=== PATIENT | female | born 1940 | race Two or more races ===

== ENCOUNTER 2025-03-01 10:54 | Inpatient (IN) | payer MEDICAID, OTHER ==
[~2025-03-01] VITALS: Ht 152.4 cm; Wt 77.4 kg
--- NOTE | 2025-03-01 12:19 | ED.PDOC ---
GI ASSESSMENT HPI Comments HPI: Julia 84 y.o F BIB son, presents to the ED for a chief complaint of epigastric pain radiating up to her chest and neck and is associated with nausea x 1 weeks. Patient reports pain is intermittent with no alleviating factors. Son reports patient just arrived from [place] today which is where she was residing. No vo miting, diarrhea, fever, or chills reported. Initial Vitals BP: 126/70 HR:93 RR:22 O2 Sat: 88% RA placed on O2 upon ED arrival. no longer SOB with O2 Past Medical history: HTN Past Surgical history: pacemaker Medications: spirolactone Social History: Denies smoking, ETOH, and drug use. Allergies: NKDA `` Chief Complaint: Shortness of Breath Time Seen by MD: 12:06 Reviewed Notes: Allergies Allergies: Coded Allergies: NO KNOWN ALLERGIES (Unverified , 03/01/25) Information Source: Patient, Relative (son ) Mode of Arrival: Wheelchair Past Medical History PAST MEDICAL HISTORY: HTN Surgical History: Pacemaker ORTHOPEDIC DENTIST History: No Pertinent ORTHOPEDIC DENTIST History Family History Family History: Reviewed,noncontributory to illness, No family hx of Cancer, No family hx of DM, No family hx of Heart dena, No family hx of HTN, No family hx ofKidney dena, No family hx of Liver dena, No family hx of Lung dena, No family hx of Stroke Social History Smoker: Non-Smoker Alcohol: Denies ETOH Use Drugs: Denies Drug Use Lives In: Home Was a procedure done? Was a procedure done?: No GI differential Dx Differential Diagnosis: Angina/[place], Gastritis/PUD, Gastroenteritis, Electrolyte Imbalance, Viral X-Ray, Labs, Meds, VS Vital Signs Date Time Temp Pulse Resp B/P (MAP) Pulse Ox O2 Delivery O2 Flow Rate FiO2 03/01/25 18:36 98.6 85 17 115/60 (78) 95 98.6 03/01/25 16:30 98.5 85 19 125/93 (104) 99 98.5 03/01/25 14:40 98.6 82 18 133/74 (93) 98 98.6 03/01/25 14:40 82 18 98 Room Air 03/01/25 13:32 86 03/01/25 11:01 87 03/01/25 11:00 98.3 93 22 126/70 88 98.3 Lab Test 03/01/25 17:49 03/01/25 14:24 03/01/25 12:35 03/01/25 12:12 Range/Units Troponin I High Sensitivity 106 *H 99 *H 94 *H </=34 ng/L White Blood Count 6.5 4.4-10.8 10^3/uL Red Blood Count 4.00 4.0-5.20 10^6/uL Hemoglobin 11.0 L 12.2-16.2 g/dL Hematocrit 34.0 L 36.0-46.0 % Mean Corpuscular Volume 84.9 80.0-100.0 fL Mean Corpuscular Hemoglobin 27.4 L 28.0-32.0 pg Mean Corpuscular Hemoglobin Concent 32.2 32.0-36.0 g/dL Red Cell Distribution Width 14.8 H 11.8-14.3 % Platelet Count 294 140-450 10^3/uL Mean Platelet Volume 7.4 6.9-10.8 fL Neutrophils (%) (Auto) 67.7 37.0-80.0 % Lymphocytes (%) (Auto) 22.3 10.0-50.0 % Monocytes (%) (Auto) 8.2 0.0-12.0 % Eosinophils (%) (Auto) 1.2 0.0-7.0 % Basophils (%) (Auto) 0.6 0.0-2.0 % Neutrophils # (Auto) 4.4 1.6-8.6 10 ^3/uL Lymphocytes # (Auto) 1.4 0.4-5.4 10 ^3/uL Monocytes # (Auto) 0.5 0-1.3 10 ^3/uL Eosinophils # (Auto) 0.1 0-0.8 10 ^3/uL Basophils # (Auto) 0 0-0.2 10 ^3/uL Nucleated Red Blood Cells 0.1 % Sodium Level 142 136-145 mmol/L Potassium Level 4.8 3.5-5.1 mmol/L Chloride Level 104 98-107 mmol/L Carbon Dioxide Level 28 20-31 mmol/L Anion Gap 10 5-15 Blood Urea Nitrogen 18 9-23 mg/dL Creatinine 1.42 H 0.550-1.02 mg/dL Glomerular Filtration Rate Calc 36 >90 mL/min BUN/Creatinine Ratio 12.7 10.0-20.0 Serum Glucose 108 H 74-106 mg/dL Lactic Acid Level 1.8 0.4-2.0 mmol/L Calcium Level 8.6 L 8.7-10.4 mg/dL Total Bilirubin 0.6 0.2-1.0 mg/dL Aspartate Amino Transferase (AST) 35 13-40 U/L Alanine Aminotransferase (ALT) 27 7-40 U/L Alkaline Phosphatase 123 H 46-116 U/L B-Type Natriuretic Peptide > 5000.00 0-100 pg/mL Total Protein 7.1 5.7-8.2 g/dL Albumin 4.2 3.2-4.8 g/dL Lipase 28 12-53 U/L Urine Color Yellow Yellow Urine Clarity Clear Clear Urine pH 6.0 5.0-9.0 Urine Specific [place] 1.029 1.001-1.035 Urine Protein 1+ H Negative Urine Ketones Trace Negative Urine Blood Trace H Negative /uL Urine Nitrite Negative Negative Urine Bilirubin 1+ H Negative Urine Urobilinogen 3 H Negative mg/dL Urine Leukocyte Esterase 1+ Negative /uL Urine RBC 5 0 - 4 /hpf Urine Microscopic WBC 9 H 0-5 /HPF Urine Squamous Epithelial Cells Few <5 /hpf Urine Bacteria Few H None Seen /hpf Urine Hyaline Casts Few 0 - 2 /lpf Urine Glucose Normal Normal mg/dL Current Medications Medications (Trade) Dose Ordered Sig/Nanda Route Start Time Stop Time Status Last Admin Aspirin (Ecotrin Enteric Coated Tablet) 325 mg ONCE ONCE PO 03/01/25 13:30 03/01/25 14:02 DC 03/01/25 14:48 Ceftriaxone Sodium 50 ml @ 100 mls/hr ONCE ONCE IV 03/01/25 14:00 03/01/25 14:29 DC 03/01/25 15:17 [place] [id number] Ph: [phone] DIAGNOSTIC IMAGING Diagnostic Imaging Report : [id number] Signed PATIENT: OLGA LIDIA CAMPBELLACCT: [id number] UNIT: [id number] : 1940 LOC: ER ROOM / BED: / AGE / SEX: 84 / F ADM STATUS: REG ER SERVICE 1214 ORDERING PHYSICIAN: FLORI ECHEVARRIA DO PROCEDURE(s): CXRP - CHEST PORTABLE REASON: epig/chest pain ORDER NUMBER(s): [id number], ACCESSION NUMBER(s): [id number] CHEST RADIOGRAPH INDICATION: epig/chest pain TECHNIQUE: Single frontal view of the chest was obtained COMPARISON: None FINDINGS: Lines and Tubes: None Lungs: No focal consolidation. Mild interstitial prominence. Indistinctness of the left hemidiaphragm. No pneumothorax. Cardiomediastinal contours: Moderate cardiomegaly with moderate atherosclerotic calcification and uncoiling of the aorta. Left-sided approach dual lead pacemak er terminating within right atrium and right ventricle. Bones: No acute osseous abnormality. IMPRESSION: Cardiomegaly with mild pulmonary vascular congestion. Indistinctness of the left hemidiaphragm which may be from overlying cardiac silhouette. Underlying trace effusion/atelectasis can not be completely excluded. Time of 1ST Reevaluation: 12:15 Reevaluation 1ST: Unchanged Patient Education/Counseling: Diagnosis, Treatment Family Education/Counseling: Diagnosis, Treatment Departure 1 Departure Time of Disposition: 13:27 Impression: Primary Impression: Chest pain Additional Impressions: Elevated troponin UTI (urinary tract infection) Hypoxemic encephalopathy Epigastric pain Disposition: 09 ADMITTED INPATIENT Admit to: Tele Condition: Guarded Discharged With: Self Critical Care Note Critical Care Time?: No I personally scribed for FLORI ECHEVARRIA DO ([email or web address]) on 03/01/25 at 12:19. Electronically submitted by Serena Vanegas ([facility]). I personally scribed for FLORI ECHEVARRIA DO ([email or web address]) on 03/01/25 at 13:18. Electronically submitted by Steff Arndt ([facility]). FLORI ECHEVARRIA DO Mar 01, 2025 12:19
[2025-03-01 12:52] LABS: Hematocrit 34.0 % (36.0-46.0); Hemoglobin 11.0 g/dL (12.2-16.2); Mean Corpuscular Hemoglobin 27.4 pg (28.0-32.0); Mean Corpuscular Volume 84.9 fL (80.0-100.0); Nucleated Red Blood Cells % 0.1 %
[2025-03-01 13:09] LABS: Alanine Aminotransferase 27 U/L (7-40); Albumin 4.2 g/dL (3.2-4.8); Anion Gap 10 (5-15); BUN/Creatinine Ratio 12.7 (10.0-20.0); Bilirubin, Total 0.6 mg/dL (0.2-1.0); Blood Urea Nitrogen 18 mg/dL (9-23); Carbon Dioxide 28 mmol/L (20-31); Chloride 104 mmol/L (98-107); Potassium 4.8 mmol/L (3.5-5.1); Sodium 142 mmol/L (136-145); Total Protein 7.1 g/dL (5.7-8.2)
[2025-03-01 13:10] LABS: Alkaline Phosphatase 123 U/L (46-116); Calcium 8.6 mg/dL (8.7-10.4); Glucose 108 mg/dL (74-106)
--- NOTE | 2025-03-01 13:12 | DVH ---
CHEST RADIOGRAPH INDICATION: epig/chest pain TECHNIQUE: Single frontal view of the chest was obtained COMPARISON: None FINDINGS: Lines and Tubes: None Lungs: No focal consolidation. Mild interstitial prominence. Indistinctness of the left hemidiaphragm. No pneumothorax. Cardiomediastinal contours: Moderate cardiomegaly with moderate atherosclerotic calcification and uncoiling of the aorta. Left-sided approach dual lead pacemaker terminating within right atrium and right ventricle. Bones: No acute osseous abnormality. IMPRESSION: Cardiomegaly with mild pulmonary vascular congestion. Indistinctness of the left hemidiaphragm which may be from overlying cardiac silhouette. Underlying trace effusion/atelectasis can not be completely excluded.
[2025-03-01 13:13] LABS: Lipase 28 U/L (12-53)
[2025-03-01 13:17] LABS: Urine Protein, UAD 1+ (Negative)
[2025-03-01] MEDS: ASPirin-EC 325mg tab PO ONE (14:48)
[2025-03-01] MEDS ORDERED: ACETAMINOPHEN 325 MG TAB PO PRN (20:30)
[2025-03-01] MEDS: LIDOCAINE VISCOUS 2% 15ML UD PO ONE (20:41)
[2025-03-01] MEDS: PANTOPRAZOLE 40 MG TAB PO ONE (20:41)
[2025-03-01] MEDS: FUROSEMIDE 40 MG/4 ML VIAL IV ONE (20:41)
[2025-03-01] MEDS: SUCRALFATE 1 GM TAB PO ONE (20:43)
--- NOTE | 2025-03-01 21:02 | DVHHP2 ---
History of Present Illness Reason for Visit: Congestive heart failure exacerbation, unspecified History of Present Illness The patient is a 84-year-old female with past medical history of hypertension who presented to [facility] ED with complaint of epigastric abdominal pain radiating up to her neck and chest, associated with nausea, shortness of breaths, for the past 1 week. Son reports that patient just arrived from [place] today which is where she was residing. Patient was seen and evaluated in the ED, laboratory data shows WBC 6.5, hemoglobin 11.0, hematocrit 34.0, platelets 294, sodium 142, potassium 4.8, BUN 18, creatinine 1.42, GFR 36, glucose 108, calcium 8.6, lactic acid 1.8, alkaline phos 123, BNP > 5000, lipase 28, troponin 94, blood pressure 115/60, heart rate 85, temperature 98.6 F, O2 saturation 95% on oxygen. Urinalysis positive for urinary tract infection. Chest x-ray revealing cardiomegaly with mild pulmonary vascular congestion, underlying trace effusion/atelectasis can not be completely excluded. Patient was started on IV Lasix, please see medication orders section in the computer. On my assessment, patient denied chest pain, no headache, dizziness, diaphoresis, currently on oxygen, no diarrhea, nausea, vomiting, fever, no chills. Patient was admitted for further evaluation and medical management. Past Medical History HTN Past Surgical History Pacemaker Family History Reviewed, noncontributory to the management of this case. Past Social History The patient lives at home, denies smoking, alcohol or illicit drugs abuse. Review of Systems Constitutional: Yes: Weakness; No: Fever, Chills, Sweats, Malaise, Other Eyes: No: Pain, Vision change, Conjunctivae inflammation, Eyelid inflammation, Other, Redness ENT: No: Ear pain, Ear discharge, Nose pain, Nose discharge, Nose congestion, Mouth pain, Mouth swelling, Throat pain, Throat swelling, Other Respiratory: Shortness of breath; No: Cough, Dry, SOB with excertion, Wheezing, Hemoptysis, Pleuritic Pain, Sputum, Wheezing, Other Cardiovascular: No: Chest Pain, Palpitations, Orthopnea, Paroxysmal Noc. Dyspnea, Edema, Lt Headedness, Other Gastrointestinal: Abdominal Pain; No: Nausea, Vomiting, Diarrhea, Constipation, Melena, Hematochezia, Other Genitourinary: No Dysuria, No Frequency, No Incontinence, No Hematuria, No Retention, No Other Musculoskeletal: No: other, neck pain, shoulder pain, arm pain, back pain, hand pain, leg pain, foot pain Skin: No: Rash, Lesions, Jaundice, Bruising, Other Neurological: No: Weakness, Numbness, Incoordination, Change in speech, Confusion, Seizures, Other Allergies: Coded Allergies: NO KNOWN ALLERGIES (Unverified , 03/01/25) Medications Current Medications Medications Dose Ordered Sig/Nanda Route Start Time Stop Time Status Last Admin Dose Admin Furosemide 40 mg DAILY IV 03/02/25 10:00 Carvedilol 3.125 mg Q12HR PO 03/01/25 22:00 Aspirin 81 mg DAILY PO 03/02/25 10:00 Ceftriaxone Sodium 50 ml @ 100 mls/hr DAILY@09 IV 03/02/25 09:00 Acetaminophen/ Hydrocodone Bitart 1 tab Q4HP PRN PO 03/01/25 20:30 Ondansetron HCl 4 mg Q4HP PRN IV 03/01/25 20:30 Docusate Sodium 100 mg BIDPRN PRN PO 03/01/25 20:30 Acetaminophen 650 mg Q6HP PRN PO 03/01/25 20:30 Exam Vital Signs Vital Signs Date Time Temp Pulse Resp B/P (MAP) Pulse Ox O2 Delivery O2 Flow Rate FiO2 03/01/25 20:41 127/81 03/01/25 18:36 98.6 85 17 95 98.6 03/01/25 14:40 Room Air General Appearance: Alert, Oriented X3, Cooperative, No acute distress HEENT: Atraumatic, PERRLA, EOMI, Mucous membr. moist/pink Respiratory: Normal air movement Cardiovascular: Regular rate, Normal S1, Normal S2, No murmurs Abdominal: Normal bowel sounds, Soft, No tenderness, No hepatospenomegaly, No masses Extremities: No clubbing, No cyanosis, No edema, Normal pulses, No tenderness/swelling Skin: No rashes, No significant lesion Neuro: Normal speech, Normal tone, Sensation intact, Cranial nerves 3-12 NL, Reflexes 2+, Other (Generalized weakness) Psych/Mental Status: Mental status NL, Mood NL Labs/Xrays Labs Test 03/01/25 17:49 03/01/25 12:35 03/01/25 12:12 Range/Units Troponin I High Sensitivity 106 *H </=34 ng/L Lipase 40 12-53 U/L White Blood Count 6.5 4.4-10.8 10^3/uL Red Blood Count 4.00 4.0-5.20 10^6/uL Hemoglobin 11.0 L 12.2-16.2 g/dL Hematocrit 34.0 L 36.0-46.0 % Mean Corpuscular Volume 84.9 80.0-100.0 fL Mean Corpuscular Hemoglobin 27.4 L 28.0-32.0 pg Mean Corpuscular Hemoglobin Concent 32.2 32.0-36.0 g/dL Red Cell Distribution Width 14.8 H 11.8-14.3 % Platelet Count 294 140-450 10^3/uL Mean Platelet Volume 7.4 6.9-10.8 fL Neutrophils (%) (Auto) 67.7 37.0-80.0 % Lymphocytes (%) (Auto) 22.3 10.0-50.0 % Monocytes (%) (Auto) 8.2 0.0-12.0 % Eosinophils (%) (Auto) 1.2 0.0-7.0 % Basophils (%) (Auto) 0.6 0.0-2.0 % Neutrophils # (Auto) 4.4 1.6-8.6 10 ^3/uL Lymphocytes # (Auto) 1.4 0.4-5.4 10 ^3/uL Monocytes # (Auto) 0.5 0-1.3 10 ^3/uL Eosinophils # (Auto) 0.1 0-0.8 10 ^3/uL Basophils # (Auto) 0 0-0.2 10 ^3/uL Nucleated Red Blood Cells 0.1 % Sodium Level 142 136-145 mmol/L Potassium Level 4.8 3.5-5.1 mmol/L Chloride Level 104 98-107 mmol/L Carbon Dioxide Level 28 20-31 mmol/L Anion Gap 10 5-15 Blood Urea Nitrogen 18 9-23 mg/dL Creatinine 1.42 H 0.550-1.02 mg/dL Glomerular Filtration Rate Calc 36 >90 mL/min BUN/Creatinine Ratio 12.7 10.0-20.0 Serum Glucose 108 H 74-106 mg/dL Lactic Acid Level 1.8 0.4-2.0 mmol/L Calcium Level 8.6 L 8.7-10.4 mg/dL Total Bilirubin 0.6 0.2-1.0 mg/dL Aspartate Amino Transferase (AST) 35 13-40 U/L Alanine Aminotransferase (ALT) 27 7-40 U/L Alkaline Phosphatase 123 H 46-116 U/L B-Type Natriuretic Peptide > 5000.00 0-100 pg/mL Total Protein 7.1 5.7-8.2 g/dL Albumin 4.2 3.2-4.8 g/dL Urine Color Yellow Yellow Urine Clarity Clear Clear Urine pH 6.0 5.0-9.0 Urine Specific [place] 1.029 1.001-1.035 Urine Protein 1+ H Negative Urine Ketones Trace Negative Urine Blood Trace H Negative /uL Urine Nitrite Negative Negative Urine Bilirubin 1+ H Negative Urine Urobilinogen 3 H Negative mg/dL Urine Leukocyte Esterase 1+ Negative /uL Urine RBC 5 0 - 4 /hpf Urine Microscopic WBC 9 H 0-5 /HPF Urine Squamous Epithelial Cells Few <5 /hpf Urine Bacteria Few H None Seen /hpf Urine Hyaline Casts Few 0 - 2 /lpf Urine Glucose Normal Normal mg/dL PATIENT: MARINA CAMPBELLANDAACCT: [id number] UNIT: [id number] : 1940 LOC: ER ROOM / BED: / AGE / SEX: 84 / F ADM STATUS: REG ER SERVICE 1214 ORDERING PHYSICIAN: FLORI ECHEVARRIA DO PROCEDURE(s): CXRP - CHEST PORTABLE REASON: epig/chest pain ORDER NUMBER(s): [id number], ACCESSION NUMBER(s): [id number] CHEST RADIOGRAPH INDICATION: epig/chest pain TECHNIQUE: Single frontal view of the chest was obtained COMPARISON: None FINDINGS: Lines and Tubes: None Lungs: No focal consolidation. Mild interstitial prominence. Indistinctness of the left hemidiaphragm. No pneumothorax. Cardiomediastinal contours: Moderate cardiomegaly with moderate atherosclerotic calcification and uncoiling of the aorta. Left-sided approach dual lead pacemaker terminating within right atrium and right ventricle. Bones: No acute osseous abnormality. IMPRESSION: Cardiomegaly with mild pulmonary vascular congestion. Indistinctness of the left hemidiaphragm which may be from overlying cardiac silhouette. Underlying trace effusion/atelectasis can not be completely excluded. SEPSIS Sepsis Screen Date sepsis recognized/suspect: Mar 01, 2025 Time Sepsis recognized/suspect: 1624 Recent Procedure: No On Antibiotic Therapy: No Respiratory Rate >20: No Heart Rate >90: Yes Temp<36 C (96.8 F) or >38.3 C: No SBP <90 or MAP <65 mmHG: No New Acute Mental Status Change: No Is the patient on CPAP, BIPAP,: No Physician Orders * Cardiology Consult (03/01/25 20:20) Furosemide Injection (Lasix Injection) (03/02/25 10:00) Carvedilol Tablet (Coreg Tablet) (03/01/25 22:00) Aspirin Chewable Tablet (03/02/25 10:00) Ceftriaxone 1gm/50ml (Rocephin) (03/02/25 09:00) Urine Bacterial Culture (03/01/25 20:20) Allergies (03/01/25 20:20) Code Status (03/01/25 20:20) Oxygen Per Hour (03/01/25 20:20) Hydrocodone-Acet 5/325mg Tab ([place] 5/32 (03/01/25 20:30) Ondansetron Hcl (Zofran) (03/01/25 20:30) Docusate Sodium Capsule (Colace Capsule) (03/01/25 20:30) Fall Risk Precautions In Place QSHIFT (03/01/25 20:20) Complete Blood Count (03/02/25 04:00) Comprehensive Metabolic Panel (03/02/25 04:00) Cardiac Diet-2gna,Lofat,Lochol (03/02/25 Breakfast) Echo 2d Mode Cardiac Dop (03/01/25 20:20) Condition: Serious (03/01/25 20:20) Acetaminophen Tablet (Tylenol Tablet) (03/01/25 20:30) Maintain Bed Rest (03/01/25 20:20) Sequential Compression Device (03/01/25 ) Vital Signs Date Time Temp Pulse Resp B/P (MAP) Pulse Ox O2 Delivery O2 Flow Rate FiO2 03/01/25 20:41 127/81 03/01/25 18:36 98.6 85 17 115/60 (78) 95 98.6 03/01/25 16:30 98.5 85 19 125/93 (104) 99 98.5 03/01/25 14:40 98.6 82 18 133/74 (93) 98 98.6 03/01/25 14:40 82 18 98 Room Air 03/01/25 13:32 86 Laboratory Tests Test 03/01/25 12:35 Lactic Acid Level 1.8 mmol/L (0.4-2.0) White Blood Count 6.5 10^3/uL (4.4-10.8) Medications Medications Dose Ordered Sig/Nanda Route Start Time Stop Time Status Last Admin Dose Admin Aspirin 325 mg ONCE ONCE PO 03/01/25 13:30 03/01/25 14:02 DC 03/01/25 14:48 325 MG Ceftriaxone Sodium 50 ml @ 100 mls/hr ONCE ONCE IV 03/01/25 14:00 03/01/25 14:29 DC 03/01/25 15:17 100 MLS/HR Furosemide 40 mg ONCE ONCE IV 03/01/25 13:15 03/01/25 14:02 DC 03/01/25 20:41 40 MG Lidocaine HCl 10 ml ONCE ONCE PO 03/01/25 20:00 03/01/25 20:30 DC 03/01/25 20:41 10 ML Pantoprazole Sodium 40 mg ONCE ONCE PO 03/01/25 20:00 03/01/25 20:30 DC 03/01/25 20:41 40 MG Sucralfate 1 gm ONCE ONCE PO 03/01/25 20:00 03/01/25 20:30 DC 03/01/25 20:43 1 GM Assessment/Plan Assessment/Plan Acute exacerbation of congestive heart failure Chest pain Elevated troponin Epigastric pain UTI urinary tract infection Generalized weakness Plan 1. Admit to telemetry unit 2. Breathing treatment 3. Pain control management 4. IV antibiotic management 5. Management of fluids and electrolytes 6. Consultation for Cardiology/hospitalist 7. Diagnostic test chest x-ray 8. DVT prophylaxis-on aspirin 9. Repeat labs CBC, CMP in a.m. 10. Home medication reviewed and reconciled 11. Continue with current medical management 12. Treatment plan discussed with patient and RN. Patient verbalized understanding. Plan discussed with: Patient, Son (At bedside), Other (RN) My Orders Orders - PETRA JHA DNP Procedure Category Date Status Time * Cardiology Consult CONS 03/01/25 Transmitted 20:20 Furosemide Injection PHA 03/02/25 In Process (Lasix Injection) 10:00 Carvedilol Tablet PHA 03/01/25 In Process (Coreg Tablet) 22:00 Aspirin Chewable PHA 03/02/25 In Process Tablet 10:00 Ceftriaxone 1gm/50ml PHA 03/02/25 In Process (Rocephin) 09:00 Urine Bacterial DIANNE 03/01/25 In Process Culture 20:20 Allergies MABLE 03/01/25 In Process 20:20 Code Status CODE 03/01/25 Transmitted 20:20 Oxygen Per Hour RT 03/01/25 Transmitted 20:20 Hydrocodone-Acet PHA 03/01/25 In Process 5/325mg Tab ([place] 20:30 Ondansetron Hcl PHA 03/01/25 In Process (Zofran) 20:30 Docusate Sodium PHA 03/01/25 In Process Capsule (Colace 20:30 Fall Risk Precautions MABLE 03/01/[address] 20:20 Complete Blood Count LAB 03/02/25 Verified 04:00 Comprehensive LAB 03/02/25 Verified Metabolic Panel 04:00 Cardiac DIET 03/02/25 Transmitted Diet-2gna,Lofat,Lochol Breakfast Echo 2d Mode Cardiac US 03/01/25 Logged DOP 20:20 Condition: Serious MABLE 03/01/25 In Process 20:20 Acetaminophen Tablet PHA 03/01/25 In Process (Tylenol Tablet) 20:30 Maintain Bed Rest MABLE 03/01/25 In Process 20:20 Sequential MABLE 03/01/25 In Process Compression Device Problem List: (1) Acute exacerbation of congestive heart failure (2) Chest pain (3) Elevated troponin (4) Epigastric pain (5) UTI (urinary tract infection) (6) Generalized weakness Date of Service: Mar 01, 2025 Billing Provider: PETRA JHA DNP Common Visit Codes: [id number] INP/OBS CARE (HIGH) PETRA JHA DNP Mar 01, 2025 21:02
[2025-03-01] MEDS ORDERED: MORPHINE SULFATE INJ 2 MG/ml SYRG IV PRN (21:15)
[2025-03-01] MEDS: HYDROcodone-ACET 5/325MG TAB PO PRN (21:16)
[2025-03-02] VITALS (8 sets, daily range): BP systolic 97–126; BP diastolic 53–83; PULSE 68–86; RESP 18–20; TEMP 97.1–98.8; O2SAT 93–100
[2025-03-02] MEDS: NITROGLYCERIN 0.4 MG SL TAB SL PRN (00:13)
[2025-03-02] MEDS: ONDANSETRON HCL 4 MG/2 ML VIAL IV PRN (01:17)
[2025-03-02] MEDS: CARVEDILOL 3.125 MG TAB PO SCH (01:43)
[2025-03-02 06:26] LABS: Hematocrit 33.4 % (36.0-46.0); Hemoglobin 10.6 g/dL (12.2-16.2); Mean Corpuscular Hemoglobin 27.2 pg (28.0-32.0); Mean Corpuscular Volume 85.4 fL (80.0-100.0); Nucleated Red Blood Cells % 0.0 %
[2025-03-02 06:46] LABS: Alanine Aminotransferase 22 U/L (7-40); Albumin 4.0 g/dL (3.2-4.8); Alkaline Phosphatase 113 U/L (46-116); Anion Gap 9 (5-15); BUN/Creatinine Ratio 13.7 (10.0-20.0); Bilirubin, Total 0.4 mg/dL (0.2-1.0); Blood Urea Nitrogen 18 mg/dL (9-23); Carbon Dioxide 29 mmol/L (20-31); Chloride 102 mmol/L (98-107); Potassium 4.6 mmol/L (3.5-5.1); Sodium 140 mmol/L (136-145); Total Protein 6.9 g/dL (5.7-8.2)
[2025-03-02 06:48] LABS: Calcium 8.4 mg/dL (8.7-10.4); Glucose 111 mg/dL (74-106)
[2025-03-02] MEDS ORDERED: ASPI-543 PO (09:34)
[2025-03-02] MEDS ORDERED: POM PO (09:34)
[2025-03-02] MEDS ORDERED: SACU1TAB7 PO (09:34)
[2025-03-02] MEDS ORDERED: ESOM1CAP37 PO (09:34)
[2025-03-02] MEDS ORDERED: SPIR25TA8 PO (09:34)
[2025-03-02] MEDS: FUROSEMIDE 40 MG/4 ML VIAL IV SCH ×2 (09:53→17:31)
--- NOTE | 2025-03-02 12:21 | ECG ---
[facility] Test Date: 2025-03-02 Test Time: 00:05:24 Pat Name: OLGA LIDIA CAMPBELL Department: Room: [address] [place] [address] Gender: F Fac Engineer: LAYNE : 1940 Requested By: PETRA JHA Order Number: [id number] Reading MD: Navin Stewart Measurements Intervals [place] Rate: 82 P: 58 VT: 217 QRS: 267 QRSD: 168 T: 77 QT: 456 QTc: 533 Interpretive Statements Atrial-sensed ventricular-paced rhythm No further analysis attempted due to paced rhythm Electronically Signed On 03-07-2025 8:16:33 PST by Navin Stewart Please click the below link to view image of tracing.
--- NOTE | 2025-03-02 13:03 | DVHINCON2 ---
Date Seen: Mar 02, 2025 Referring Physician CROW Arias Reason for Consultation CHF History of Present Illness This is a pleasant French-speaking 84-year-old female patient who presents to the emergency room with multiple chief complaints. The patient complains of epigastric pain radiating up to her chest with associated headache and shortness of breath. When patient was asked about the chest pain, she states that it is precipitated by epigastric pain which feels as though it is a burning sensation that travels from the epigastric region directly up towards her substernal chest and all the way to her throat. Associated symptoms include shortness of breath, nausea and headache. Cardiology has been consulted at this time for CHF exacerbation. The patient denies any cardiac symptoms at time of assessment including chest pain, palpitations, shortness of breath, etc.. Initial twelve lead electrocardiogram reveals an AV paced rhythm. Initial troponin level of 94ng/L with flat trend thereafter. Initial BNP significant as it is >5000pg/mL. At the time of assessment, the patient denies any cardiac symptoms. The patient is a very poor historian. The patient's son who was at bedside is equally a poor historian. Patient is originally from [place] and states that she still goes out there for medications. Per patient and her son, significant past medical history includes permanent pacemaker implantation in November 2022 (Medtronic), hypertension, GERD, and morbid obesity. The patient and her son both deny that the patient has a ever been diagnosed with congestive heart failure. Patient medication list noted to have heart failure medications. She denies any previous cardiac workup and reports that the only cardiac intervention she has had is a permanent pacemaker. 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 Rodríguez. Past Medical History Past medical history reviewed. No other significant than mentioned above. Past Surgical History Permanent pacemaker implantation in November 2022 Family History Family history reviewed. Social History Denies the use of tobacco, alcohol or illicit drugs. Allergies: Coded Allergies: NO KNOWN ALLERGIES (Unverified , 03/01/25) Home Meds Reported Medications Aspirin (Aspir-Low) 81 Mg Tab, 81 MG PO DAILY for 30 Days, MG 03/02/25 Spironolactone (Spironolactone) 25 Mg Tab, 1 TAB PO DAILY, #90 TAB 1 Refill 03/02/25 Patients Own Medication (PATIENTS OWN MEDICATION) ., 20 PO DAILY PTS OWN MED-OBTAIN FROM PT AND SEND TO RX DRUG:PROPINOX FREQ:DAILY RX# EXP: DATE DISP: TECH: [facility]: 03/02/25 Sacubitril-Valsartan (Entresto 49-51 mg) 1 Tab Tab, 1 TAB PO DAILY, TAB 03/02/25 Esomeprazole Magnesium (Esomeprazole Magnesium) 20 Mg Cap, 20 MG PO BID, CAP 03/02/25 Home Meds Home medications reviewed. Current Medications Current Medications Medications (Trade) Dose Ordered Sig/Nanda Route PRN Reason Start Time Stop Time Status Last Admin Furosemide (Lasix Injection) 40 mg DAILY IV 03/02/25 10:00 03/02/25 09:53 Carvedilol (Coreg Tablet) 3.125 mg Q12HR PO 03/01/25 22:00 03/02/25 09:52 Aspirin 81 mg DAILY PO 03/02/25 10:00 03/02/25 09:53 Ceftriaxone Sodium 50 ml @ 100 mls/hr DAILY@09 IV 03/02/25 09:00 03/02/25 09:52 Acetaminophen/ Hydrocodone Bitart ([place] 5/325MG Tab) 1 tab Q4HP PRN PO MODERATE PAIN (4-6 PAIN SCALE) 03/01/25 20:30 03/01/25 21:16 Ondansetron HCl (Zofran) 4 mg Q4HP PRN IV NAUSEA / VOMITING 03/01/25 20:30 03/02/25 01:17 Docusate Sodium (Colace Capsule) 100 mg BIDPRN PRN PO FOR CONSTIPATION 03/01/25 20:30 Acetaminophen (Tylenol Tablet) 650 mg Q6HP PRN PO PAIN SCALE 1-3 OR TEMP>100.4 03/01/25 20:30 Nitroglycerin (Ntrostat Sublingual) 0.4 mg Q5MINP PRN SL FOR CHEST PAIN 03/01/25 21:15 03/02/25 00:13 Morphine Sulfate 2 mg Q30M PRN IV FOR CHEST PAIN 03/01/25 21:15 Review of Systems Constitutional: No symptom reported Ears, Nose, & Throat: No symptom reported Eyes: No symptom reported Neurological: Headache Pulmonary/Respiratory: Shortness of breath Cardiovascular: Chest pain Gastrointestinal: Epigastric pain, nausea Genitourinary: No symptom reported Musculoskeletal: No symptom reported Skin: No symptom reported Psychiatric: No symptom reported Endocrine: No symptom reported Hematologic/Lymphatic: No symptom reported Vital Signs Vital Signs Date Time Temp Pulse Resp B/P (MAP) Pulse Ox O2 Delivery O2 Flow Rate FiO2 03/02/25 09:53 105/78 03/02/25 09:52 80 03/02/25 09:00 97.1 20 99 97.1 03/02/25 07:30 Nasal Cannula* 2 28 Physical Exam General Appearance: Cooperative. Morbidly obese Pulmonary/Respiratory: Diminished bilateral lower lobes Cardiovascular/Chest: Regular rate and rhythm. Peripheral Pulses: 2+ Radial (R). 2+ Radial (L). 2+ Pedal (R). 2+ Pedal (L) Abdominal Exam: Normal bowel sounds. Ankle Exam: Nonpitting bilateral ankle edema Lower extremities: Nonpitting bilateral lower extremity edema Neuro/Mental Status: A/OX4, coherent. Thoughts/Psych: Normal thought pattern. Appropriate mood and affect. Good judgment and insight. Appearance: No acute distress. Skin Exam: Normal inspection. Normal color. Warm and dry. Labs/Diagnostic Data Labs Test 03/02/25 04:55 03/01/25 17:49 03/01/25 12:35 03/01/25 12:12 Range/Units White Blood Count 6.8 4.4-10.8 10^3/uL Red Blood Count 3.91 L 4.0-5.20 10^6/uL Hemoglobin 10.6 L 12.2-16.2 g/dL Hematocrit 33.4 L 36.0-46.0 % Mean Corpuscular Volume 85.4 80.0-100.0 fL Mean Corpuscular Hemoglobin 27.2 L 28.0-32.0 pg Mean Corpuscular Hemoglobin Concent 31.8 L 32.0-36.0 g/dL Red Cell Distribution Width 14.7 H 11.8-14.3 % Platelet Count 267 140-450 10^3/uL Mean Platelet Volume 7.3 6.9-10.8 fL Neutrophils (%) (Auto) 80.2 H 37.0-80.0 % Lymphocytes (%) (Auto) 12.5 10.0-50.0 % Monocytes (%) (Auto) 6.9 0.0-12.0 % Eosinophils (%) (Auto) 0.2 0.0-7.0 % Basophils (%) (Auto) 0.2 0.0-2.0 % Neutrophils # (Auto) 5.5 1.6-8.6 10 ^3/uL Lymphocytes # (Auto) 0.9 0.4-5.4 10 ^3/uL Monocytes # (Auto) 0.5 0-1.3 10 ^3/uL Eosinophils # (Auto) 0 0-0.8 10 ^3/uL Basophils # (Auto) 0 0-0.2 10 ^3/uL Nucleated Red Blood Cells 0.0 % Sodium Level 140 136-145 mmol/L Potassium Level 4.6 3.5-5.1 mmol/L Chloride Level 102 98-107 mmol/L Carbon Dioxide Level 29 20-31 mmol/L Anion Gap 9 5-15 Blood Urea Nitrogen 18 9-23 mg/dL Creatinine 1.31 H 0.550-1.02 mg/dL Glomerular Filtration Rate Calc 40 >90 mL/min BUN/Creatinine Ratio 13.7 10.0-20.0 Serum Glucose 111 H 74-106 mg/dL Calcium Level 8.4 L 8.7-10.4 mg/dL Total Bilirubin 0.4 0.2-1.0 mg/dL Aspartate Amino Transferase (AST) 26 13-40 U/L Alanine Aminotransferase (ALT) 22 7-40 U/L Alkaline Phosphatase 113 46-116 U/L Total Protein 6.9 5.7-8.2 g/dL Albumin 4.0 3.2-4.8 g/dL Troponin I High Sensitivity 106 *H </=34 ng/L Lipase 40 12-53 U/L Lactic Acid Level 1.8 0.4-2.0 mmol/L B-Type Natriuretic Peptide > 5000.00 0-100 pg/mL Urine Color Yellow Yellow Urine Clarity Clear Clear Urine pH 6.0 5.0-9.0 Urine Specific [place] 1.029 1.001-1.035 Urine Protein 1+ H Negative Urine Ketones Trace Negative Urine Blood Trace H Negative /uL Urine Nitrite Negative Negative Urine Bilirubin 1+ H Negative Urine Urobilinogen 3 H Negative mg/dL Urine Leukocyte Esterase 1+ Negative /uL Urine RBC 5 0 - 4 /hpf Urine Microscopic WBC 9 H 0-5 /HPF Urine Squamous Epithelial Cells Few <5 /hpf Urine Bacteria Few H None Seen /hpf Urine Hyaline Casts Few 0 - 2 /lpf Urine Glucose Normal Normal mg/dL Microbiology Date/Time Source Procedure Growth Status 03/01/25 12:12 Voided Urine Urine Culture - Preliminary Resulted Assessment Rule out structural heart disease NSTEMI Presence of permanent pacemaker (Medtronic) Hypertension Acute kidney injury Prediabetes GERD Morbid obesity Plan/Recommendation We will continue with the following plan/recommendations (Dr. Alejandro): * Transthoracic echocardiogram to evaluate cardiac function * Strict intake and output, daily weights, maintain fluid restriction and low sodium diet * Preload and afterload reduction * Aggressive diuresis as tolerated * Permanent pacemaker interrogation * Close cardiac surveillance Case discussed with . We will proceed with obtaining a transthoracic echocardiogram to evaluate cardiac function. Consider further GI workup given p atient is complaining mostly of epigastric pain with associated nausea. Further recommendations from Cardiology per clinical course and progression. Thank you for allowing us to care for this patient. Please call with any questions or concerns. Critical care time spent: 44 minutes This medical document was created using an electronic medical record system with voice recognition software and computerized dictation system. Although this document has been carefully reviewed, there might still be some phonetic and typographical errors. Occasional wrong-word or ``sound-alike substitutions may have occurred due to the inherent limitations of voice recognition software. These areas are purely typographical due to imperfections of the software p kady and do not reflect any compromise in the patient's medical care. Please read the chart carefully and recognize, using context, where these substitutions have occurred. Plan discussed with: Patient NYHA Physical activity limitations: NA Date of Service: Mar 02, 2025 Billing Provider: DIANE BURRIS Cardiology Common Codes: [id number] INP/OBS CARE (High) Cardiology Consultation Codes: [id number] CONSULT <45MIN DIANE BURRIS Mar 02, 2025 13:03
--- NOTE | 2025-03-02 13:19 | DVHPN2 ---
Subjective some SOB Reviewed: H&P Changes from previous H/P or p: No Changes Eyes: No Pain, No Vision change, No Conjunctivae inflammation, No Eyelid inflammation, No Other, No Redness ENT: No Ear pain, No Ear discharge, No Nose pain, No Nose discharge, No Nose congestion, No Mouth pain, No Mouth swelling, No Throat pain, No Throat swelling, No Other Cardiovascular: No Chest Pain, No Palpitations, No Orthopnea, No Paroxysmal Noc. Dyspnea, No Edema, No Lt Headedness, No Other Respiratory: No Cough, No Dry; Shortness of breath; No SOB with excertion, No Wheezing, No Hemoptysis, No Pleuritic Pain, No Sputum, No Other Gastrointestinal: No Nausea, No Vomiting; Abdominal Pain; No Diarrhea, No Constipation, No Melena, No Hematochezia, No Other Genitourinary: No Dysuria, No Frequency, No Incontinence, No Hematuria, No Retention, No Other Musculoskeletal: No other, No neck pain, No shoulder pain, No arm pain, No back pain, No hand pain, No leg pain, No foot pain Skin: No Rash, No Lesions, No Jaundice, No Bruising, No Other Objective Vitals Vital Signs Date Time Temp Pulse Resp B/P (MAP) Pulse Ox O2 Delivery O2 Flow Rate FiO2 03/02/25 09:53 105/78 03/02/25 09:52 80 03/02/25 09:00 97.1 20 99 97.1 03/02/25 07:30 Nasal Cannula* 2 28 Intake/Output Intake and Output 03/02/25 07:00 Intake Total 50 ml Output Total 400 ml Balance -350 ml Intake IV Total 50 ml Output Urine Total 400 ml General Appearance: Alert, Oriented X3 HEENT: Atraumatic Cardiovascular: Regular rate, Normal S1, Normal S2 Abdomen: Normal bowel sounds Medications Current Medications Medications Dose Ordered Sig/Nanda Route Start Time Stop Time Status Last Admin Dose Admin Carvedilol 3.125 mg Q12HR PO 03/01/25 22:00 03/02/25 09:52 3.125 MG Aspirin 81 mg DAILY PO 03/02/25 10:00 03/02/25 09:53 81 MG Ceftriaxone Sodium 50 ml @ 100 mls/hr DAILY@09 IV 03/02/25 09:00 03/02/25 09:52 100 MLS/HR Acetaminophen/ Hydrocodone Bitart 1 tab Q4HP PRN PO 03/01/25 20:30 03/01/25 21:16 1 TAB Ondansetron HCl 4 mg Q4HP PRN IV 03/01/25 20:30 03/02/25 01:17 4 MG Docusate Sodium 100 mg BIDPRN PRN PO 03/01/25 20:30 Acetaminophen 650 mg Q6HP PRN PO 03/01/25 20:30 Nitroglycerin 0.4 mg Q5MINP PRN SL 03/01/25 21:15 03/02/25 00:13 0.4 MG Morphine Sulfate 2 mg Q30M PRN IV 03/01/25 21:15 Furosemide 40 mg BID IV 03/02/25 22:00 UNV Sacubitril/ Valsartan 1 tab BID PO 03/02/25 22:00 UNV Laboratory Results Laboratory Tests 03/02/25 04:55 Chemistry Test 03/02/25 04:55 Albumin 4.0 g/dL (3.2-4.8) Calcium Level 8.4 mg/dL (8.7-10.4) L Magnesium Level Pending Total Protein 6.9 g/dL (5.7-8.2) Lipid panel Test 03/01/25 17:49 03/02/25 04:55 Lipase 40 U/L (12-53) Cholesterol Level Pending HDL Cholesterol Pending Triglycerides Level Pending LFT Test 03/02/25 04:55 Alanine Aminotransferase (ALT) 22 U/L (7-40) Alkaline Phosphatase 113 U/L (46-116) Aspartate Amino Transferase (AST) 26 U/L (13-40) Total Bilirubin 0.4 mg/dL (0.2-1.0) HgA1c, TSH Test 03/02/25 04:55 Hemoglobin A1c Pending Thyroid Stimulating Hormone (TSH) Pending Urinalysis Test 03/01/25 12:12 Urine Color Yellow (Yellow) Urine Clarity Clear (Clear) Urine pH 6.0 (5.0-9.0) Urine Specific [place] 1.029 (1.001-1.035) Urine Protein 1+ (Negative) H Urine Ketones Trace (Negative) Urine Blood Trace /uL (Negative) H Urine Nitrite Negative (Negative) Urine Bilirubin 1+ (Negative) H Urine Urobilinogen 3 mg/dL (Negative) H Urine Leukocyte Esterase 1+ /uL (Negative) Urine RBC 5 /hpf (0 - 4) Urine Microscopic WBC 9 /HPF (0-5) H Urine Squamous Epithelial Cells Few /hpf (<5) Urine Bacteria Few /hpf (None Seen) H Urine Hyaline Casts Few /lpf (0 - 2) Urine Glucose Normal mg/dL (Normal) Microbiology Microbiology Date/Time Source Procedure Growth Status 03/01/25 12:12 Voided Urine Urine Culture - Preliminary Resulted Assessment/Plan Assessment/Plan Acute exacerbation of congestive heart failure Chest pain Elevated troponin Epigastric pain UTI urinary tract infection Generalized weakness Continue IV lasix Cardiology on consult echocardiogram pending Plan discussed with: Patient Date of Service: Mar 02, 2025 Billing Provider: ABBY DOVE MD Common Visit Codes: [id number] INP/OBS CARE(HIGH) ABBY DOVE MD Mar 02, 2025 13:19
[2025-03-02 13:27] LABS: Magnesium 2.2 mg/dL (1.6-2.6); Triglycerides 65.0 mg/dL (< 150)
[2025-03-02 13:29] LABS: Cholesterol 162.0 mg/dL (< 200); HDL Cholesterol 48.0 mg/dL (40-59)
[2025-03-02] MEDS: DOCUSATE SOD 100 MG CAP PO PRN (21:09)
[2025-03-02] MEDS: SACUBITRIL-VALSARTAN 24mg/26mg TAB PO SCH (21:15)
--- NOTE | 2025-03-02 22:39 | DVHINCON2 ---
Date Seen: Mar 02, 2025 Referring Physician CROW Arias Reason for Consultation CHF History of Present Illness This is a pleasant Vietnamese-speaking 84-year-old female with a past medical history of permanent pacemaker implantation in November 2022 ([employer]tronic), hypertension, GERD, and morbid obesity who presents to the emergency room with multiple chief complaints. The patient complains of epigastric pain radiating up to her chest with associated headache and shortness of breath. When patient was asked about the chest pain, she states that it is precipitated by epigastric pain which feels as though it is a burning sensation that travels from the epigastric region directly up towards her substernal chest in all the way to her throat. Associated symptoms include shortness of breath, nausea and headache. Initial twelve lead electrocardiogram reveals an AV paced rhythm. Initial troponin level of 94ng/L with flat trend thereafter. Initial BNP significant as it is >5000pg/mL. At the time of assessment, the patient denies any cardiac symptoms. The patient is a very poor historian. The patient's son who was at bedside is equally a poor historian. Patient is originally from [place] and states that she still goes out there for medications.The patient and her son both deny that the patient has a ever been diagnosed with congestive heart failure. Patient medication list noted to have heart failure medications. She denies any previous cardiac workup and reports that the only cardiac intervention she has had is a permanent pacemaker. 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 Rodríguez. Cardiology has been consulted at this time for CHF exacerbation. Past Medical History Past medical history reviewed. No other significant than mentioned above. Past Surgical History Permanent pacemaker implantation in November 2022 Allergies: Coded Allergies: NO KNOWN ALLERGIES (Unverified , 03/01/25) Home Meds Reported Medications Aspirin (Aspir-Low) 81 Mg Tab, 81 MG PO DAILY for 30 Days, MG 03/02/25 Spironolactone (Spironolactone) 25 Mg Tab, 1 TAB PO DAILY, #90 TAB 1 Refill 03/02/25 Patients Own Medication (PATIENTS OWN MEDICATION) ., 20 PO DAILY PTS OWN MED-OBTAIN FROM PT AND SEND TO RX DRUG:PROPINOX FREQ:DAILY RX# EXP: DATE DISP: TECH: [facility]: 03/02/25 Sacubitril-Valsartan (Entresto 49-51 mg) 1 Tab Tab, 1 TAB PO DAILY, TAB 03/02/25 Esomeprazole Magnesium (Esomeprazole Magnesium) 20 Mg Cap, 20 MG PO BID, CAP 03/02/25 Current Medications Current Medications Medications (Trade) Dose Ordered Sig/Nanda Route PRN Reason Start Time Stop Time Status Last Admin Furosemide (Lasix Injection) 40 mg DAILY IV 03/02/25 10:00 03/02/25 13:04 DC 03/02/25 09:53 Carvedilol (Coreg Tablet) 3.125 mg Q12HR PO 03/01/25 22:00 03/02/25 09:52 Aspirin 81 mg DAILY PO 03/02/25 10:00 03/02/25 09:53 Ceftriaxone Sodium 50 ml @ 100 mls/hr DAILY@09 IV 03/02/25 09:00 03/02/25 09:52 Acetaminophen/ Hydrocodone Bitart ([place] 5/325MG Tab) 1 tab Q4HP PRN PO MODERATE PAIN (4-6 PAIN SCALE) 03/01/25 20:30 03/02/25 15:57 Ondansetron HCl (Zofran) 4 mg Q4HP PRN IV NAUSEA / VOMITING 03/01/25 20:30 03/02/25 01:17 Docusate Sodium (Colace Capsule) 100 mg BIDPRN PRN PO FOR CONSTIPATION 03/01/25 20:30 Acetaminophen (Tylenol Tablet) 650 mg Q6HP PRN PO PAIN SCALE 1-3 OR TEMP>100.4 03/01/25 20:30 Nitroglycerin (Ntrostat Sublingual) 0.4 mg Q5MINP PRN SL FOR CHEST PAIN 03/01/25 21:15 03/02/25 00:13 Morphine Sulfate 2 mg Q30M PRN IV FOR CHEST PAIN 03/01/25 21:15 Furosemide (Lasix Injection) 40 mg BIDD IV 03/02/25 18:00 Sacubitril/ Valsartan (Entresto 24-26 Mg tab) 1 tab BID PO 03/02/25 22:00 Review of Systems Constitutional: No symptom reported Ears, Nose, & Throat: No symptom reported Eyes: No symptom reported Neurological: Headache Pulmonary/Respiratory: Shortness of breath Cardiovascular: Chest pain Gastrointestinal: Epigastric pain, nausea Genitourinary: No symptom reported Musculoskeletal: No symptom reported Skin: No symptom reported Psychiatric: No symptom reported Endocrine: No symptom reported Hematologic/Lymphatic: No symptom reported Vital Signs Vital Signs Date Time Temp Pulse Resp B/P (MAP) Pulse Ox O2 Delivery O2 Flow Rate FiO2 03/02/25 13:00 97.2 75 20 116/64 (81) 99 97.2 03/02/25 07:30 Nasal Cannula* 2 28 Physical Exam GENERAL: Alert and oriented x 3. No acute distress. Morbidly obese. EYES: PERRL, EOMI. Anicteric. HENT: Moist mucous membranes. LUNGS: Diminished bilateral lower lobes. CARDIOVASCULAR: Regular rate and rhythm. ABDOMEN: Soft, nontender and nondistended. EXTREMITIES: Nonpitting bilateral lower extremity edema. NEUROLOGIC: No focal neurological deficits. SKIN: Warm, dry. Labs/Diagnostic Data Labs Test 03/02/25 04:55 03/01/25 17:49 03/01/25 12:35 03/01/25 12:12 Range/Units White Blood Count 6.8 4.4-10.8 10^3/uL Red Blood Count 3.91 L 4.0-5.20 10^6/uL Hemoglobin 10.6 L 12.2-16.2 g/dL Hematocrit 33.4 L 36.0-46.0 % Mean Corpuscular Volume 85.4 80.0-100.0 fL Mean Corpuscular Hemoglobin 27.2 L 28.0-32.0 pg Mean Corpuscular Hemoglobin Concent 31.8 L 32.0-36.0 g/dL Red Cell Distribution Width 14.7 H 11.8-14.3 % Platelet Count 267 140-450 10^3/uL Mean Platelet Volume 7.3 6.9-10.8 fL Neutrophils (%) (Auto) 80.2 H 37.0-80.0 % Lymphocytes (%) (Auto) 12.5 10.0-50.0 % Monocytes (%) (Auto) 6.9 0.0-12.0 % Eosinophils (%) (Auto) 0.2 0.0-7.0 % Basophils (%) (Auto) 0.2 0.0-2.0 % Neutrophils # (Auto) 5.5 1.6-8.6 10 ^3/uL Lymphocytes # (Auto) 0.9 0.4-5.4 10 ^3/uL Monocytes # (Auto) 0.5 0-1.3 10 ^3/uL Eosinophils # (Auto) 0 0-0.8 10 ^3/uL Basophils # (Auto) 0 0-0.2 10 ^3/uL Nucleated Red Blood Cells 0.0 % Sodium Level 140 136-145 mmol/L Potassium Level 4.6 3.5-5.1 mmol/L Chloride Level 102 98-107 mmol/L Carbon Dioxide Level 29 20-31 mmol/L Anion Gap 9 5-15 Blood Urea Nitrogen 18 9-23 mg/dL Creatinine 1.31 H 0.550-1.02 mg/dL Glomerular Filtration Rate Calc 40 >90 mL/min BUN/Creatinine Ratio 13.7 10.0-20.0 Serum Glucose 111 H 74-106 mg/dL Hemoglobin A1c 6.0 H <5.7 % A1C Calcium Level 8.4 L 8.7-10.4 mg/dL Magnesium Level 2.2 1.6-2.6 mg/dL Total Bilirubin 0.4 0.2-1.0 mg/dL Aspartate Amino Transferase (AST) 26 13-40 U/L Alanine Aminotransferase (ALT) 22 7-40 U/L Alkaline Phosphatase 113 46-116 U/L Total Protein 6.9 5.7-8.2 g/dL Albumin 4.0 3.2-4.8 g/dL Triglycerides Level 65 < 150 mg/dL Cholesterol Level 162 < 200 mg/dL LDL Cholesterol 106 H < 100 mg/dL HDL Cholesterol 48 40-59 mg/dL Thyroid Stimulating Hormone (TSH) 4.43 0.55-4.78 uIU/mL Troponin I High Sensitivity 106 *H </=34 ng/L Lipase 40 12-53 U/L Lactic Acid Level 1.8 0.4-2.0 mmol/L B-Type Natriuretic Peptide > 5000.00 0-100 pg/mL Urine Color Yellow Yellow Urine Clarity Clear Clear Urine pH 6.0 5.0-9.0 Urine Specific [place] 1.029 1.001-1.035 Urine Protein 1+ H Negative Urine Ketones Trace Negative Urine Blood Trace H Negative /uL Urine Nitrite Negative Negative Urine Bilirubin 1+ H Negative Urine Urobilinogen 3 H Negative mg/dL Urine Leukocyte Esterase 1+ Negative /uL Urine RBC 5 0 - 4 /hpf Urine Microscopic WBC 9 H 0-5 /HPF Urine Squamous Epithelial Cells Few <5 /hpf Urine Bacteria Few H None Seen /hpf Urine Hyaline Casts Few 0 - 2 /lpf Urine Glucose Normal Normal mg/dL Microbiology Date/Time Source Procedure Growth Status 03/01/25 12:12 Voided Urine Urine Culture - Preliminary Resulted Assessment Rule out structural heart disease. NSTEMI. Presence of permanent pacemaker (Medtronic). Hypertension. Acute kidney injury. GERD. Morbid obesity. Plan/Recommendation I agree with your ongoing assessment and care of plan. Patient has been seen by Audrey Perez NP on my behalf, her/him and I discussed the plan with the patient. Transthoracic echocardiogram to evaluate cardiac function. Strict intake and output, daily weights, maintain fluid restriction and low sodium diet. Preload and afterload reduction. Permanent pacemaker interrogation. Close cardiac surveillance. We will proceed with obtaining a transthoracic echocardiogram to evaluate cardiac function. Consider further GI workup given patient is complaining mostly of epigastric pain with associated nausea. Further recommendations from Cardiology per clinical course and progression. Additional plan as per the hospital course. Plan discussed with: Patient NYHA Physical activity limitations: NA Date of Service: Mar 02, 2025 Billing Provider: NAT HAN MD Cardiology Common Codes: [id number] INP/OBS CARE (High) NAT HAN MD Mar 02, 2025 17:07
[2025-03-03] VITALS (18 sets, daily range): BP systolic 90–137; BP diastolic 37–81; PULSE 61–89; RESP 12–20; TEMP 97.5–99; O2SAT 90–100
--- NOTE | 2025-03-03 00:37 | DVHSR ---
APPROVED REPORT EXAM: Two-dimensional and M-mode echocardiogram with Doppler and color Doppler. Blood Pressure: 97/53 mmHg INDICATION CHF exacerbation, unspecified Surgery/Intervention Pacemaker: RISK FACTORS Obesity: Height: 5'0", Weight: 231 DIMENSIONS LVDd 5.8 (3.8-5.7cm) LA (2D) 4.7 (1.9-4.0cm) Aortic Root 2.9 (2.0-3.7cm) LVDs 5.8 (2.5-4.0cm) LA (MM) (1.9-4.0cm) Aortic Cusp Exc 1.5 (1.5-2.0cm) EF (%) 10.0 (55-70%) Rt. Atrium 5.0 (1.9-4.0cm) Asc. Aorta cm IVSd 1.3 (0.7-1.1cm) RV (D) 5.2 (1.8-2.4cm) PWd 1.0 (0.7-1.1cm) Mitral Valve Mitral Mitral Stenosis E wave 1.13m/s MV Mean GR. mmHg A wave 0.74m/s MV Peak GR. mmHg E/A ratio 1.5 2D MVA cm2 DECEL Time 120ms PRESS 1/2 Time ms Aortic Valve Aortic Valve Aortic Stenosis V1 0.72m/s AO Mean GR. 3mmHg V2 1.20m/s AO Peak GR. 6mmHg LVOT Diameter 1.8 (1.8-2.4cm) Doppler BONNY 1.53cm2 Pulmonic Valve V2 1.11m/s Tricuspid Valve TR Velocity 3.41m/s RVSP 55mmHg Conclusion DILATED ALL CARDIAC CHAMBERS SEVERE HYPOKINESIS OF ALL CARDIAL CHAMBERS LV EF IS ONLY 10% SEVERE MR MODERATE DEGREE TR SEVERE PULMONARY HYPERTENSION RVSP IS 55 MM OF HG AND IS VERY HIGH
[2025-03-03 07:59] LABS: Hematocrit 34.2 % (36.0-46.0); Hemoglobin 10.9 g/dL (12.2-16.2); Mean Corpuscular Hemoglobin 27.7 pg (28.0-32.0); Mean Corpuscular Volume 87.0 fL (80.0-100.0); Nucleated Red Blood Cells % 0.2 %
[2025-03-03 08:10] LABS: Anion Gap 10 (5-15); Carbon Dioxide 29 mmol/L (20-31); Chloride 99 mmol/L (98-107); Potassium 5.0 mmol/L (3.5-5.1); Sodium 138 mmol/L (136-145)
[2025-03-03 08:16] LABS: BUN/Creatinine Ratio 19.1 (10.0-20.0); Calcium 8.3 mg/dL (8.7-10.4); Glucose 88 mg/dL (74-106)
[2025-03-03 08:17] LABS: Blood Urea Nitrogen 30 mg/dL (9-23)
--- NOTE | 2025-03-03 10:52 | DVH ---
CT HEAD WITHOUT CONTRAST INDICATION: aloc new onset confusion COMPARISON: None TECHNIQUE: CT of the head without intravenous contrast. RADIATION DOSE: CTDIvol: 59.6 mGy, DLP: 1174.46 mGy*cm FINDINGS: 2.9 cm partially calcified mass is seen in the left posterior region, possibly meningioma. No intracranial hemorrhage. No significant mass-effect. The ventricles, sulci and cisterns are age appropriate. The reaves-white differentiation is intact. The visualized paranasal sinuses and mastoid air cells are clear. The surrounding soft tissues and osseous structures are unremarkable. IMPRESSION: 1. No acute intracranial abnormality. 2. 2.9 cm partially calcified mass in the left posterior region, possibly meningioma. Consider correlation with MRI brain.
--- NOTE | 2025-03-03 10:57 | DVHPN2 ---
Consult Progress Note Subjective Other Systems: Patient found to be confused at time of assessment. AV paced on equipment monitor phototypesetting Objective vital signs Vital Sign Date Time Temp Pulse Resp B/P (MAP) Pulse Ox O2 Delivery O2 Flow Rate FiO2 03/03/25 09:21 71 125/69 03/03/25 09:00 97.5 18 99 97.5 03/02/25 20:00 Nasal Cannula* 2 28 Total Intake and Output 03/02/25 03/02/25 03/03/25 15:00 23:00 07:00 Intake Total 540 ml 400 ml Output Total 800 ml 1200 ml Balance -260 ml -800 ml medications Current Medications Medications Dose Ordered Sig/Nanda Route Start Time Stop Time Status Last Admin Dose Admin Carvedilol 3.125 mg Q12HR PO 03/01/25 22:00 03/03/25 09:21 3.125 MG Aspirin 81 mg DAILY PO 03/02/25 10:00 03/03/25 09:21 81 MG Ceftriaxone Sodium 50 ml @ 100 mls/hr DAILY@09 IV 03/02/25 09:00 03/03/25 09:20 100 MLS/HR Acetaminophen/ Hydrocodone Bitart 1 tab Q4HP PRN PO 03/01/25 20:30 03/03/25 04:41 1 TAB Ondansetron HCl 4 mg Q4HP PRN IV 03/01/25 20:30 03/03/25 04:38 4 MG Docusate Sodium 100 mg BIDPRN PRN PO 03/01/25 20:30 03/02/25 21:09 100 MG Acetaminophen 650 mg Q6HP PRN PO 03/01/25 20:30 Nitroglycerin 0.4 mg Q5MINP PRN SL 03/01/25 21:15 03/02/25 00:13 0.4 MG Morphine Sulfate 2 mg Q30M PRN IV 03/01/25 21:15 Furosemide 40 mg BIDD IV 03/02/25 18:00 03/03/25 04:39 40 MG Sacubitril/ Valsartan 1 tab BID PO 03/02/25 22:00 03/03/25 09:21 1 TAB Examination: GENERAL:Abnormal (Generalized weakness), LUNGS:Normal, CVS:Normal, NEURO:Abnormal (Confused) laboratory and microbiology Laboratory Tests 03/03/25 05:51 Test 03/03/25 05:51 Range/Units Serum Glucose 88 74-106 mg/dL Problem List/Assessment/Plan Problem List/Assessment/Plan De Jose decompensated HFrEF, NYHA class III NSTEMI Presence of permanent pacemaker (Medtronic) Hypertension Severe mitral valve regurgitation Moderate degree tricuspid regurgitation Severe pulmonary hypertension (RVSP 55mmHg) Acute kidney injury Prediabetes GERD Morbid obesity Plan/Recommendations (Dr. Alejandro): * Transthoracic echocardiogram reveals EF of 10%, RVSP 55 mmHg * Initiate guideline directed medical therapy for CHF as tolerated by renal function * Hold SGLT2i given decreased GFR * Hold MRA (spironolactone) given borderline hyperkalemia * Strict intake and output, daily weights, maintain fluid restriction and low sodium diet * Preload and afterload reduction * Aggressive diuresis as tolerated * Permanent pacemaker interrogation pending * Close cardiac surveillance Case discussed with . Today (03/03/2025), the patient was found to be very confused. Bedside RN reports that the patient was having difficulty swallowing her morning pills and water. Given language barrier, bedside RN was unsure if patient was confused. This TAFFY CANDY MAKER assessed the patient personally and spoke to the patient in Slovenian and the patient was only able to state her name. The patient is confused and this is a change from yesterday's assessment. A stat head CT was ordered. No notable unilateral weakness, slurred speech, or facial droop noted. An ABG was ordered and based off of findings the patient was upgraded to the intensive care unit for BiPAP. Later on in the afternoon, and myself followed up on the patient to check status. At this time, spoke with the patient's family regarding echocardiogram findings and the patient's family state that she is now comfort measures only and would like to withdraw all care including medications. Thank you for allowing us to care for this patient. Please call with any questions or concerns. Critical care time spent: 39 minutes. This medical document was created using an electronic medical record system with voice recognition software and computerized dictation system. Although this document has been carefully reviewed, there might still be some phonetic and typographical errors. Occasional wrong-word or ``sound-alike substitutions may have occurred due to the inherent limitations of voice recognition software. These areas are purely typographical due to imperfections of the software programs and do not reflect any compromise in the patient's medical care. Please read the chart carefully and recognize, using context, where these substitutions have occurred. Plan discussed with: Patient, Other (Bedside RN) Date of Service: Mar 03, 2025 Billing Provider: DIANE BURRIS Common Visit Codes: [id number] CARE 30-74 MIN DIANE BURRIS Mar 03, 2025 10:57
[2025-03-03 11:46] LABS: Base Excess -2.0 mmol/L (-2.0-3.0)
[2025-03-03 12:09] LABS: Base Excess -0.6 mmol/L (-2.0-3.0)
[2025-03-03] MEDS: LORazepam 2MG/ML-1ML VIAL IV PRN (14:04)
--- NOTE | 2025-03-03 15:55 | DVHPN2 ---
Subjective In the morning became very lethargic ABG showed respiratory alkalosis Reviewed: H&P Changes from previous H/P or p: No Changes Eyes: No Pain, No Vision change, No Conjunctivae inflammation, No Eyelid inflammation, No Other, No Redness ENT: No Ear pain, No Ear discharge, No Nose pain, No Nose discharge, No Nose congestion, No Mouth pain, No Mouth swelling, No Throat pain, No Throat swelling, No Other Cardiovascular: No Chest Pain, No Palpitations, No Orthopnea, No Paroxysmal Noc. Dyspnea, No Edema, No Lt Headedness, No Other Respiratory: No Cough, No Dry; Shortness of breath; No SOB with excertion, No Wheezing, No Hemoptysis, No Pleuritic Pain, No Sputum, No Other Gastrointestinal: No Nausea, No Vomiting; Abdominal Pain; No Diarrhea, No Constipation, No Melena, No Hematochezia, No Other Genitourinary: No Dysuria, No Frequency, No Incontinence, No Hematuria, No Retention, No Other Musculoskeletal: No other, No neck pain, No shoulder pain, No arm pain, No back pain, No hand pain, No leg pain, No foot pain Skin: No Rash, No Lesions, No Jaundice, No Bruising, No Other Objective Vitals Vital Signs Date Time Temp Pulse Resp B/P (MAP) Pulse Ox O2 Delivery O2 Flow Rate FiO2 03/03/25 13:15 74 91/71 96 Facial BiPAP Mask 40 03/03/25 09:00 97.5 18 97.5 03/03/25 08:00 3 Intake/Output Intake and Output 03/03/25 05:00 Intake Total 940 ml Output Total 2000 ml Balance -1060 ml Intake Oral 940 ml Output Urine Total 2000 ml # Bowel Movements 1 General Appearance: Alert, Other (lethargic) HEENT: Atraumatic Cardiovascular: Regular rate, Normal S1, Normal S2 Abdomen: Normal bowel sounds Medications Current Medications Medications Dose Ordered Sig/Nanda Route Start Time Stop Time Status Last Admin Dose Admin Carvedilol 3.125 mg Q12HR PO 03/01/25 22:00 03/03/25 09:21 3.125 MG Aspirin 81 mg DAILY PO 03/02/25 10:00 03/03/25 09:21 81 MG Ceftriaxone Sodium 50 ml @ 100 mls/hr DAILY@09 IV 03/02/25 09:00 03/03/25 09:20 100 MLS/HR Acetaminophen/ Hydrocodone Bitart 1 tab Q4HP PRN PO 03/01/25 20:30 03/03/25 04:41 1 TAB Ondansetron HCl 4 mg Q4HP PRN IV 03/01/25 20:30 03/03/25 04:38 4 MG Docusate Sodium 100 mg BIDPRN PRN PO 03/01/25 20:30 03/02/25 21:09 100 MG Acetaminophen 650 mg Q6HP PRN PO 03/01/25 20:30 Nitroglycerin 0.4 mg Q5MINP PRN SL 03/01/25 21:15 03/02/25 00:13 0.4 MG Morphine Sulfate 2 mg Q30M PRN IV 03/01/25 21:15 Furosemide 40 mg BIDD IV 03/02/25 18:00 03/03/25 04:39 40 MG Sacubitril/ Valsartan 1 tab BID PO 03/02/25 22:00 03/03/25 09:21 1 TAB Lorazepam 2 mg Q6HP PRN IV 03/03/25 13:45 03/03/25 14:04 2 MG Laboratory Results Laboratory Tests 03/03/25 05:51 Chemistry Test 03/03/25 05:51 Calcium Level 8.3 mg/dL (8.7-10.4) L Urinalysis Test 03/01/25 12:12 Urine Color Yellow (Yellow) Urine Clarity Clear (Clear) Urine pH 6.0 (5.0-9.0) Urine Specific [place] 1.029 (1.001-1.035) Urine Protein 1+ (Negative) H Urine Ketones Trace (Negative) Urine Blood Trace /uL (Negative) H Urine Nitrite Negative (Negative) Urine Bilirubin 1+ (Negative) H Urine Urobilinogen 3 mg/dL (Negative) H Urine Leukocyte Esterase 1+ /uL (Negative) Urine RBC 5 /hpf (0 - 4) Urine Microscopic WBC 9 /HPF (0-5) H Urine Squamous Epithelial Cells Few /hpf (<5) Urine Bacteria Few /hpf (None Seen) H Urine Hyaline Casts Few /lpf (0 - 2) Urine Glucose Normal mg/dL (Normal) Blood Gas Results Test 03/03/25 10:50 03/03/25 11:36 Arterial Blood pH 7.138 (7.350-7.450) 7.257 (7.350-7.450) FiO2 % 32.0 40.0 Microbiology Microbiology Date/Time Source Procedure Growth Status 03/01/25 12:12 Voided Urine Urine Culture - Final Complete Assessment/Plan Assessment/Plan Acute exacerbation of congestive heart failure Acute hypercapneic respiratory failure Acute metabolic encephalopathy Chest pain Elevated troponin Epigastric pain UTI urinary tract infection Generalized weakness Stat CT head ABG stat BIPAP placed Transferred to ICU I had long discussion with son at bedside and initially wanted FULL CODE. She became worse with hypotension and now placed DNR Comfort measures. Spent 40 minutes total time in discussion with family multiple times Plan discussed with: Patient, Son My Orders Orders - ABBY DOVE MD Procedure Category Date Status Time Abg W/ Co-Ox RT 03/03/25 Logged 10:26 Abg W/ Co-Ox RT 03/03/25 Logged 11:32 BIPAP RT 03/03/25 Logged 11:32 Lorazepam 2mg/Ml Inj PHA 03/03/25 In Process (Ativan Inj) 13:45 Abg W/ Co-Ox RT 03/03/25 Logged 13:52 BIPAP RT 03/03/25 Logged 14:41 Date of Service: Mar 03, 2025 Billing Provider: ABBY DOVE MD Common Visit Codes: 99868-STO/OBS DISCH DAY >30min Secondary Visit Codes: 39920-[id number] CARE PLAN ADDL 30MIN ABBY DOVE MD Mar 03, 2025 15:55
[2025-03-03 16:00] LABS: Base Excess -0.5 mmol/L (-2.0-3.0)
[2025-03-03] MEDS ORDERED: MORPHINE SULFATE INJ 2 MG/ml SYRG IV PRN (16:45)
[2025-03-03] MEDS ORDERED: LORazepam 2MG/ML-1ML VIAL IV PRN (16:45)
--- NOTE | 2025-03-03 18:56 | DVHPN2 ---
Consult Progress Note Subjective Other Systems: Patient was seen and evaluated in follow up in the ICU. Patient found to be confused at time of assessment. AV paced on wad lubricator. BUN 30,CLASS[employer] PROFESSOR 1.57. CT head shows 2.9 cm partially calcified mass in the left posterior region, possibly meningioma. Objective vital signs Vital Sign Date Time Temp Pulse Resp B/P (MAP) Pulse Ox O2 Delivery O2 Flow Rate FiO2 03/03/25 09:21 71 125/69 03/03/25 09:00 97.5 18 99 97.5 03/03/25 08:00 Nasal Cannula* 3 32 Total Intake and Output 03/02/25 03/02/25 03/03/25 15:00 23:00 07:00 Intake Total 540 ml 400 ml Output Total 800 ml 1200 ml Balance -260 ml -800 ml medications Current Medications Medications Dose Ordered Sig/Nanda Route Start Time Stop Time Status Last Admin Dose Admin Carvedilol 3.125 mg Q12HR PO 03/01/25 22:00 03/03/25 09:21 3.125 MG Aspirin 81 mg DAILY PO 03/02/25 10:00 03/03/25 09:21 81 MG Ceftriaxone Sodium 50 ml @ 100 mls/hr DAILY@09 IV 03/02/25 09:00 03/03/25 09:20 100 MLS/HR Acetaminophen/ Hydrocodone Bitart 1 tab Q4HP PRN PO 03/01/25 20:30 03/03/25 04:41 1 TAB Ondansetron HCl 4 mg Q4HP PRN IV 03/01/25 20:30 03/03/25 04:38 4 MG Docusate Sodium 100 mg BIDPRN PRN PO 03/01/25 20:30 03/02/25 21:09 100 MG Acetaminophen 650 mg Q6HP PRN PO 03/01/25 20:30 Nitroglycerin 0.4 mg Q5MINP PRN SL 03/01/25 21:15 03/02/25 00:13 0.4 MG Morphine Sulfate 2 mg Q30M PRN IV 03/01/25 21:15 Furosemide 40 mg BIDD IV 03/02/25 18:00 03/03/25 04:39 40 MG Sacubitril/ Valsartan 1 tab BID PO 03/02/25 22:00 03/03/25 09:21 1 TAB Examination: GENERAL:Abnormal (Generalized weakness), HEENT:Abnormal, LUNGS:Normal, CVS:Normal, NEURO:Abnormal (Confused) laboratory and microbiology Laboratory Tests 03/03/25 05:51 Test 03/03/25 05:51 Range/Units Serum Glucose 88 74-106 mg/dL Problem List/Assessment/Plan Problem List/Assessment/Plan Problem List De Jose decompensated HFrEF, NYHA class III. NSTEMI. Presence of permanent pacemaker (Medtronic). Hypertension. Severe mitral valve regurgitation. Moderate degree tricuspid regurgitation. Severe pulmonary hypertension (RVSP 55mmHg). Acute kidney injury. Prediabetes. GERD. Morbid obesity. Plan/Recommendation Continued all current supportive medical care. Patient has been seen by Audrey Perez NP on my behalf, her/him and I discussed the plan with the patient. Transthoracic echocardiogram reveals EF of 10%, RVSP 55 mmHg. Initiate guideline directed medical therapy for CHF as tolerated by renal function. Hold SGLT2i given decreased GFR. Hold MRA (spironolactone) given borderline hyperkalemia. Strict intake and output, daily weights, maintain fluid restriction and low sodium diet. Preload and afterload reduction. Aggressive diuresis as tolerated. Permanent pacemaker interrogation pending. Close cardiac surveillance. Today (03/03/2025), the patient was found to be very confused. Bedside RN reports that the patient was having difficulty swallowing her morning pills and water. Given language barrier, bedside RN was unsure if patient was confused. Audrey Perez NP assessed the patient personally and spoke to the patient in Belarusian and the patient was only able to state her name. The patient is confused and this is a change from yesterday's assessment. A stat head CT was ordered. No notable unilateral weakness, slurred speech, or facial droop noted. Further recommendations per clinical course and progression. Additional plan as per the hospital course. Plan discussed with: Other Date of Service: Mar 03, 2025 Billing Provider: NAT HAN MD Cardiology Common Codes: 41098-[id number] CARE 30-74 MIN NAT HAN MD Mar 03, 2025 13:24
--- NOTE | 2025-03-03 21:01 | ECG ---
[facility] Test Date: 2025-03-01 Test Time: 13:32:39 Pat Name: OLGA LIDIA CAMPBELL Department: ED Room: [address] [place] [address] A Gender: F Rug Sample Beveler: FRANCESCA : 1940 Requested By: FLORI ECHEVARRIA Order Number: [id number] Reading MD: Navin Stewart Measurements Intervals [place] Rate: 86 P: 76 [place]: 208 QRS: -87 QRSD: 175 T: 87 QT: 451 QTc: 540 Interpretive Statements Atrial-sensed ventricular-paced rhythm No further analysis attempted due to paced rhythm Baseline wander in lead(s) I Electronically Signed On 03-07-2025 8:30:07 PST by Navin Stewart Please click the below link to view image of tracing.
--- NOTE | 2025-03-03 21:01 | ECG ---
[facility] [place] Test Date: 2025-03-01 Test Time: 11:01:03 Pat Name: OLGA LIDIA CAMPBELL Department: ED Room: [address] [place] [address] A Gender: F Form Coverer: BEAR : 1940 Requested By: FLORI ECHEVARRIA Order Number: [id number] Reading MD: Navin Stewart Measurements Intervals [place] Rate: 87 P: 147 DE: 204 QRS: -86 QRSD: 173 T: 88 QT: 457 QTc: 550 Interpretive Statements Atrial-sensed ventricular-paced rhythm No further analysis attempted due to paced rhythm Electronically Signed On 03-07-2025 8:27:57 PST by Navin Stewart Please click the below link to view image of tracing.
[2025-03-04] VITALS (40 sets, daily range): BP systolic 92–134; BP diastolic 24–62; PULSE 73–89; RESP 8–18; TEMP 96.6–99.3; O2SAT 83–100
[2025-03-04] MEDS: MORPHINE SULFATE 4 MG/ML SYR/VIAL IV PRN ×2 (07:40→16:15)
[2025-03-04] MEDS ORDERED: MORPHINE SULFATE INJ 2 MG/ml SYRG IV PRN (14:45)
[2025-03-04] MEDS: DOBUTamine 1000MCG/ML 250 ML IV SCH (15:36)
[2025-03-04] MEDS: PANTOPRAZOLE 40 MG/10 ML VIAL INJ IV ONE (15:36)
[2025-03-04 16:47] LABS: Base Excess 1.0 mmol/L (-2.0-3.0)
--- NOTE | 2025-03-04 18:08 | DVHPNRES ---
Progress Note Date Seen: Mar 05, 2025 Resident Creating Document: LIANE FLETCHER RESIDENT Medical Necessity Reason Pt with a Central, PICC or Fol: Yes The following are medically ne: Moore Catheter Subjective Review of Systems The patient is a 84-year-old female with past medical history of hypertension who presented to [facility] ED with complaint of epigastric abdominal pain radiating up to her neck and chest, associated with nausea, shortness of breaths, for the past 1 week. Son reports that patient just arrived from [place] today which is where she was residing. Patient was seen and evaluated in the ED, laboratory data shows WBC 6.5, hemoglobin 11.0, hematocrit 34.0, platelets 294, sodium 142, potassium 4.8, BUN 18, creatinine 1.42, GFR 36, glucose 108, calcium 8.6, lactic acid 1.8, alkaline phos 123, BNP > 5000, lipase 28, troponin 94, blood pressure 115/60, heart rate 85, temperature 98.6 F, O2 saturation 95% on oxygen. Chest x-ray revealing cardiomegaly with mild pulmonary vascular congestion, underlying trace effusion/atelectasis can not be completely excluded. Patient was noted to be in acute decompensated heart failure with ejection fraction less than 10% and subsequently started on IV Lasix, patient AO x1 so unable to obtain accurate history. Patient's family poor historian, unsure whether or not patient had a pre-existing heart condition, however, patient does have a pacemaker placed in the past. 03/04/25: Patient seen and examined at bedside. Family would like to have patient as a modified resuscitated order including only vasopressors, no chest compressions no intubation no BiPAP no cardioversion and no defibrillation. Detailed discussion held with patient's 2 sons and grandson at bedside. Objective vital signs Vital Sign Date Time Temp Pulse Resp B/P (MAP) Pulse Ox O2 Delivery O2 Flow Rate FiO2 03/04/25 17:00 Facial BiPAP Mask 24 03/04/25 15:36 123/43 03/04/25 12:30 77 12 100 03/04/25 12:00 96.6 96.6 03/04/25 08:00 3 Total Intake and Output 03/03/25 03/03/25 03/04/25 15:00 23:00 07:00 Intake Total 0 ml Output Total 850 ml 500 ml Balance -850 ml -500 ml medications Current Medications Medications Dose Ordered Sig/Nanda Route Start Time Stop Time Status Last Admin Dose Admin Pantoprazole Sodium 40 mg DAILY IV 03/05/25 10:00 Dobutamine HCl/ Dextrose 250 ml @ 11.715 mls/ hr [id number] IV 03/04/25 14:45 03/04/25 15:36 11.715 MLS/HR Enoxaparin Sodium 30 mg DAILY SC 03/05/25 10:00 Morphine Sulfate 1 mg Q6HP PRN IV 03/04/25 16:15 Examination General Appearance: AO x1 Head Exam: Normal inspection Neck Exam: Equal and reactive pupils Pulmonary/Respiratory: Chest non-tender. decreased bilateral breath sounds, crackles heard, no wheezing. Cardiovascular/Chest: Regular rate and rhythm. No murmurs. JVD. Peripheral Pulses: 2+ Radial (R). 2+ Radial (L). 2+ Pedal (R). 2+ Pedal (L) Abdominal Exam: Normal bowel sounds. Soft. normal abdomen, no visible veins, Nontender. No hepatospenomegaly. No masses Ankle Exam 1+ lower edema up to the knee Skin Exam: Normal inspection. Normal color. Warm. Dry laboratory and microbiology Laboratory Tests 03/03/25 05:51 Test 03/03/25 05:51 Range/Units Serum Glucose 88 74-106 mg/dL Microbiology Date/Time Source Procedure Growth Status 03/03/25 11:57 Nose MRSA Screen - Final Complete 03/01/25 12:12 Voided Urine Urine Culture - Final Complete Labs and/or images reviewed: Labs reviewed by me, Image(s) reviewed by me Problem List/Assessment/Plan Problem List/Assessment/Plan Neurology # acute metabolic encephalopathy - head CT: No acute intracranial abnormality. 2.9 cm partially calcified mass in the left posterior region possibly meningioma. Consider correlation with MRI brain. Cardiovascular # acute de Jose heart failure with reduced ejection fraction # NSTEMI likely to # s/p pacemaker placement # essential hypertension # severe mitral regurgitation # moderate tricuspid regurgitation # pulmonary hypertension with RVSP 55 mmHg - echo 03/03/2025: Dilated all cardiac chambers. Severe hypokinesis of all cardiac chambers. LVEF 10%. Severe MR. Moderate TR. Severe pulmonary hypertension. RVSP 55 mmHg. - dobutamine drip - cardiology on board Respiratory # Acute hypoxic hypercapnic respiratory failure # respiratory acidosis - CXR: Cardiomegaly with mild pulmonary vascular congestion. Indistinctness of the left hemidiaphragm overlying cardiac silhouette. Underlying trace effusion/atelectasis can not be completely excluded. - on O2 via NC - family refusing BiPAP GI # Peptic ulcer prophylaxis -Pantoprazole 40 mg IV daily # Moore catheter placed on 03/03/2025 Nephrology MAE likely VMN on CKD - monitor Endocrine # type 2 diabetes - currently holding insulin as patient NPO DVT prophylaxis - Lovenox 30 mg subcutaneous Nutrition NPO, failed swallow evaluation Lines Right midline placed on 03/02/2025 Last bowel movement 03/02/2025 Physical therapy ordered Critical care time 84 minutes excluding procedure. Code status discussed greater than 20 minutes: Full CODE STATUS. Family at bedside explained about the condition of the patient Plan discussed with Dr. Salinas Plan discussed with: Son, Other (RN, grandson) My Orders My Orders Orders - LIANE FLETCHER Procedure Category Date Status Time Enoxaparin Sodium PHA 03/05/25 In Process (Lovenox) 10:00 Complete Blood Count LAB 03/05/25 Verified 04:00 Visit Coding STANDARD RES Billing Provider: SUZY SALINAS MD Date of Service if different f: Mar 04, 2025 Common Visit Codes: 38515-[id number] CARE 30-74 MIN, 00408-[id number] CARE-EACH +30MIN LIANE FLETCHER Mar 04, 2025 18:08 SUZY SALINAS MD Mar 05, 2025 15:12
[2025-03-05] VITALS (33 sets, daily range): BP systolic 99–142; BP diastolic 20–82; PULSE 79–102; RESP 10–22; TEMP 97.9–98.8; O2SAT 65–100
--- NOTE | 2025-03-05 01:39 | DVHPN2 ---
Progress Note - Dictate Date Seen: Mar 04, 2025 Medical Necessity Reason Pt with a Central, PICC or Fol: No Subjective Patient was seen and evaluated in follow up in the ICU. Patient is on 4 LPM NC. Family would like to have patient as a modified resuscitated order including only vasopressors, no chest compressions no intubation no BiPAP no cardioversion and no defibrillation. MRSA is negative. Urine culture grew >100,000 CFU/mL Mixed Pat 3 [place] Types. vital signs Vital Sign Date Time Temp Pulse Resp B/P (MAP) Pulse Ox O2 Delivery O2 Flow Rate FiO2 03/05/25 01:00 86 13 106/34 (58) 91 03/05/25 00:00 Nasal Cannula* 4 36 03/05/25 00:00 98.3 98.3 Total Intake and Output 03/04/25 03/04/25 03/05/25 15:00 23:00 07:00 Intake Total 88.575 ml 23.430 ml Output Total 500 ml Balance -411.425 ml 23.430 ml medications Current Medications Medications Dose Ordered Sig/Nanda Route Start Time Stop Time Status Last Admin Dose Admin Pantoprazole Sodium 40 mg DAILY IV 03/05/25 10:00 Dobutamine HCl/ Dextrose 250 ml @ 11.715 mls/ hr [id number] IV 03/04/25 14:45 03/04/25 15:36 11.715 MLS/HR Enoxaparin Sodium 30 mg DAILY SC 03/05/25 10:00 Morphine Sulfate 1 mg Q6HP PRN IV 03/04/25 16:15 03/04/25 16:15 1 MG objective GENERAL: Alert and oriented x 3. No acute distress. Morbidly obese. EYES: PERRL, EOMI. Anicteric. HENT: Moist mucous membranes. LUNGS: Diminished bilateral lower lobes. CARDIOVASCULAR: Regular rate and rhythm. ABDOMEN: Soft, nontender and nondistended. EXTREMITIES: Nonpitting bilateral lower extremity edema. NEUROLOGIC: No focal neurological deficits. SKIN: Warm, dry. laboratory and microbiology Laboratory Tests 03/03/25 05:51 Test 03/03/25 05:51 Range/Units Serum Glucose 88 74-106 mg/dL Problem List De Jose decompensated HFrEF, NYHA class III. NSTEMI. Presence of permanent pacemaker (Medtronic). Hypertension. Severe mitral valve regurgitation. Moderate degree tricuspid regurgitation. Severe pulmonary hypertension (RVSP 55mmHg). Acute kidney injury. Prediabetes. GERD. Morbid obesity. Assessment/Plan Continued all current supportive medical care. DVT and GI prophylactics. Morphine for pain. Additional plan as per the hospital course. Critical care time of 45 minutes provided to include time spent evaluation of patient at bedside, when appropriate patient/family education for diagnosis, treatment plan, review of pertinent medical information and discussion of care with specialty providers and PCP. Plan discussed with: Patient NAT HAN MD Mar 05, 2025 01:39
[2025-03-05 04:26] LABS: Hemoglobin 10.4 g/dL (12.2-16.2); Nucleated Red Blood Cells % 0.2 %
[2025-03-05 04:28] LABS: Hematocrit 33.4 % (36.0-46.0); Mean Corpuscular Hemoglobin 27.2 pg (28.0-32.0); Mean Corpuscular Volume 87.6 fL (80.0-100.0)
[2025-03-05 04:37] LABS: Chloride 105 mmol/L (98-107); Potassium 4.7 mmol/L (3.5-5.1)
[2025-03-05 04:43] LABS: Glucose 94 mg/dL (74-106)
[2025-03-05 04:51] LABS: Anion Gap 8 (5-15); Calcium 8.1 mg/dL (8.7-10.4); Carbon Dioxide 33 mmol/L (20-31); Sodium 146 mmol/L (136-145)
[2025-03-05 05:52] LABS: BUN/Creatinine Ratio 38.3 (10.0-20.0)
[2025-03-05 05:56] LABS: Blood Urea Nitrogen 46 mg/dL (9-23)
[2025-03-05] MEDS: PANTOPRAZOLE 40 MG/10 ML VIAL INJ IV SCH (09:53)
[2025-03-05] MEDS: ENOXAPARIN SOD 30 MG/0.3 ML SYRINGE SC SCH (09:53)
[2025-03-05] MEDS ORDERED: PANTOPRAZOLE 40 MG/10 ML VIAL INJ IV SCH (10:00)
--- NOTE | 2025-03-05 11:59 | DVH ---
CHEST RADIOGRAPH INDICATION: hfref exac TECHNIQUE: Single frontal view of the chest was obtained COMPARISON: XY CHEST PORTABLE on DOS: 03/01/25 FINDINGS: Lines and Tubes: Dual-chamber pacemaker in place unchanged Lungs: Increased markings throughout the right chest left base Pleura: No effusion. No pneumothorax. Cardiomediastinal contours: Unremarkable Bones: No acute osseous abnormality. IMPRESSION: 1. Findings may represent congestive failure or pneumonia correlate with clinical setting.
[2025-03-05] MEDS: acetaZOLAMIDE SODIUM 500 MG VL IV ONE (15:15)
--- NOTE | 2025-03-05 19:09 | DVHDSRES ---
Discharge Summary Date of Admission Resident Creating Document: LIANE FLETCHER RESIDENT Mar 01, 2025 at 21:01 Date of Discharge: Mar 05, 2025 Labs/Diagnostic Data: Laboratory Results Test 03/05/25 04:15 03/04/25 16:42 03/03/25 15:23 03/03/25 13:56 White Blood Count 5.8 10^3/uL (4.4-10.8) Red Blood Count 3.82 10^6/uL (4.0-5.20) Hemoglobin 10.4 g/dL (12.2-16.2) Hematocrit 33.4 % (36.0-46.0) Mean Corpuscular Volume 87.6 fL (80.0-100.0) Mean Corpuscular Hemoglobin 27.2 pg (28.0-32.0) Mean Corpuscular Hemoglobin Concent 31.1 g/dL (32.0-36.0) Red Cell Distribution Width 15.0 % (11.8-14.3) Platelet Count 246 10^3/uL (140-450) Mean Platelet Volume 7.2 fL (6.9-10.8) Neutrophils (%) (Auto) 70.4 % (37.0-80.0) Lymphocytes (%) (Auto) 18.2 % (10.0-50.0) Monocytes (%) (Auto) 10.0 % (0.0-12.0) Eosinophils (%) (Auto) 1.0 % (0.0-7.0) Basophils (%) (Auto) 0.4 % (0.0-2.0) Neutrophils # (Auto) 4.1 10 ^3/uL (1.6-8.6) Lymphocytes # (Auto) 1.1 10 ^3/uL (0.4-5.4) Monocytes # (Auto) 0.6 10 ^3/uL (0-1.3) Eosinophils # (Auto) 0.1 10 ^3/uL (0-0.8) Basophils # (Auto) 0 10 ^3/uL (0-0.2) Nucleated Red Blood Cells 0.2 % Sodium Level 146 mmol/L (136-145) Potassium Level 4.7 mmol/L (3.5-5.1) Chloride Level 105 mmol/L (98-107) Carbon Dioxide Level 33 mmol/L (20-31) Anion Gap 8 (5-15) Blood Urea Nitrogen 46 mg/dL (9-23) Creatinine 1.20 mg/dL (0.550-1.02) Glomerular Filtration Rate Calc 44 mL/min (>90) BUN/Creatinine Ratio 38.3 (10.0-20.0) Serum Glucose 94 mg/dL (74-106) Calcium Level 8.1 mg/dL (8.7-10.4) Blood Gas Specimen Type Arterial Blood Gas Sample Site Right radial Blood Gas Patient Temperature 37.0 Arterial Blood Date Drawn [id number] Arterial Blood pH 7.156 (7.350-7.450) Arterial Blood Partial Pressure CO2 92.6 mmHg (32.0-45.0) Arterial Blood Partial Pressure O2 108.8 mmHg (83.0-108.0) Arterial Blood HCO3 32.0 mmol/L (21.0-28.0) Arterial Blood Oxygen Saturation 97.1 % (94.0-98.0) Arterial Blood Base Excess 1.0 mmol/L (-2.0-3.0) Arterial Blood Oxyhemoglobin 96.1 % (94.0-98.0) Arterial Blood Carboxyhemoglobin 0.7 % (0.5-1.5) Arterial Blood Methemoglobin 0.3 % (0.0-1.5) Arterial Blood Deoxyhemoglobin 2.9 % (0.0-5.0) Iker Test Yes Blood Gas Total Hemoglobin 11.60 g/dL (12.0-16.0) Blood Gas Liter Flow 4.00 Blood Gas Modality Nasal cannula FiO2 % 36.0 Blood Gas Critical Value Read Back Yes Blood Gas Notified Florina Byers md Blood Gas Notified Time [id number] Blood Gas Notified By [facility] mental health consultant Blood Gas Set Respiration Rate 12.0 Blood Gas EPAP 5 Blood Gas IPAP 18 Ammonia < 10 umol/L (11-32) Test 03/03/25 12:28 03/03/25 11:36 03/02/25 04:55 03/01/25 17:49 POC Glucose 85 mg/dl (70-106) Blood Gas Spontaneous Rate 17 Hemoglobin A1c 6.0 % A1C (<5.7) Magnesium Level 2.2 mg/dL (1.6-2.6) Total Bilirubin 0.4 mg/dL (0.2-1.0) Aspartate Amino Transferase (AST) 26 U/L (13-40) Alanine Aminotransferase (ALT) 22 U/L (7-40) Alkaline Phosphatase 113 U/L (46-116) Total Protein 6.9 g/dL (5.7-8.2) Albumin 4.0 g/dL (3.2-4.8) Triglycerides Level 65 mg/dL (< 150) Cholesterol Level 162 mg/dL (< 200) LDL Cholesterol 106 mg/dL (< 100) HDL Cholesterol 48 mg/dL (40-59) Thyroid Stimulating Hormone (TSH) 4.43 uIU/mL (0.55-4.78) Troponin I High Sensitivity 106 ng/L (</=34) Lipase 40 U/L (12-53) Test 03/01/25 12:35 03/01/25 12:12 Lactic Acid Level 1.8 mmol/L (0.4-2.0) B-Type Natriuretic Peptide > 5000.00 pg/mL (0-100) Urine Color Yellow (Yellow) Urine Clarity Clear (Clear) Urine pH 6.0 (5.0-9.0) Urine Specific Gilman 1.029 (1.001-1.035) Urine Protein 1+ (Negative) Urine Ketones Trace (Negative) Urine Blood Trace /uL (Negative) Urine Nitrite Negative (Negative) Urine Bilirubin 1+ (Negative) Urine Urobilinogen 3 mg/dL (Negative) Urine Leukocyte Esterase 1+ /uL (Negative) Urine RBC 5 /hpf (0 - 4) Urine Microscopic WBC 9 /HPF (0-5) Urine Squamous Epithelial Cells Few /hpf (<5) Urine Bacteria Few /hpf (None Seen) Urine Hyaline Casts Few /lpf (0 - 2) Urine Glucose Normal mg/dL (Normal) Other Laboratory Tests 03/05/25 04:15 Brief Hx & Hospital Course: The patient is a 84-year-old female with past medical history of hypertension who presented to [facility] ED with complaint of epigastric abdominal pain radiating up to her neck and chest, associated with nausea, shortness of breaths, for the past 1 week. Son reports that patient just arrived from [place] today which is where she was residing. Patient was seen and evaluated in the ED, laboratory data shows WBC 6.5, hemoglobin 11.0, hematocrit 34.0, platelets 294, sodium 142, potassium 4.8, BUN 18, creatinine 1.42, GFR 36, glucose 108, calcium 8.6, lactic acid 1.8, alkaline phos 123, BNP > 5000, lipase 28, troponin 94, blood pressure 115/60, heart rate 85, temperature 98.6 F, O2 saturation 95% on oxygen. Chest x-ray revealing cardiomegaly with mild pulmonary vascular congestion, underlying trace effusion/atelectasis can not be completely excluded. Patient was noted to be in acute decompensated heart failure with ejection fraction less than 10% and subsequently started on IV Lasix, patient AO x1 so unable to obtain accurate history. Patient's family poor historian, unsure whether or not patient had a pre-existing heart condition, however, patient does have a pacemaker placed in the past. Hospital course: Patient was started on IV diuretics and later required dobutamine infusion. Cardiology was consulted. Code status was modified per family request (vasopressors only; no CPR, intubation, BiPAP, cardioversion, or defibrillation). Patient remained encephalopathic (AO x1); head CT showed no acute findings but noted a partially calcified mass suggestive of meningioma. She developed acute hypoxic hypercapnic respiratory failure; family declined BiPAP. Moore catheter and right midline were placed. Patient remained NPO after failing swallow evaluation; insulin held. DVT prophylaxis with Lovenox and GI prophylaxis with IV pantoprazole were provided. MAE on CKD was monitored. Physical therapy was ordered but not initiated due to clinical status. Despite aggressive management, patients condition remained critical. After extensive discussion with family regarding prognosis, they elected to take the patient AMA (Against Medical Advice) on 03/04/2025, risks were explained but d/t pt's agitation, they decided to leave. Condition at Discharge: Undetermined Final Diagnosis/Problems List # acute metabolic encephalopathy # acute de Jose heart failure with reduced ejection fraction # NSTEMI likely type 2 # s/p pacemaker placement # essential hypertension # severe mitral regurgitation # moderate tricuspid regurgitation # Acute hypoxic hypercapnic respiratory failure # respiratory acidosis # MAE likely VMN on CKD Discharge Disposition: AMA Discharge Instruct/Medications Scheduled Aspirin (Aspir-Low), 81 MG PO DAILY, (Reported) Esomeprazole Magnesium (Esomeprazole Magnesium), 20 MG PO BID, (Reported) Patients Own Medication (Patients Own Medication), 20 PO DAILY, (Reported) Sacubitril-Valsartan (Entresto 49-51 mg), 1 TAB PO DAILY, (Reported) Spironolactone (Spironolactone), 1 TAB PO DAILY, (Reported) Discharge Statement: "Patient was advised to return to the ER or call 911 if any headaches, dizziness, shortness of breath, chest pain, abdominal pain, bleeding, fevers, or worsening of medical condition. Patient was counseled about treatment plan, medications, possible side effects, patientverbalized understanding. All questions were answered to the best of my ability. This discharge took greater then 30 minutes in planning, reviewing documentation, counseling the patient, and discussing with other team members." ASSESSMENT ASSESSMENT Assessment Visit Coding STANDARD RES Billing Provider: SUZY SALINAS MD Date of Service if different f: Mar 05, 2025 Common Visit Codes: 09683-GJG/OBS DISCH DAY >30min LIANE FLTECHER Mar 05, 2025 19:09
--- NOTE | 2025-03-05 23:15 | DVHPN2 ---
Progress Note - Dictate Date Seen: Mar 05, 2025 Medical Necessity Reason Pt with a Central, PICC or Fol: Yes The following are medically ne: Moore Catheter Subjective Patient was seen and evaluated in follow up in the ICU. Per RN, patient has been more combative. NA 146, CO2 33, BUN 46,MANAGER TRACK 1.20, CA 8.1. Chest x-ray findings may represent congestive failure or pneumonia vital signs Vital Sign Date Time Temp Pulse Resp B/P (MAP) Pulse Ox O2 Delivery O2 Flow Rate FiO2 03/05/25 16:01 98.8 88 15 125/20 (55) 89 98.8 03/05/25 16:00 Room Air* 0 21 Total Intake and Output 03/04/25 03/04/25 03/05/25 15:00 23:00 07:00 Intake Total 88.575 ml 93.720 ml Output Total 500 ml 575 ml Balance -411.425 ml -481.280 ml objective GENERAL: Alert and oriented x 3. No acute distress. Morbidly obese. EYES: PERRL, EOMI. Anicteric. HENT: Moist mucous membranes. LUNGS: Diminished bilateral lower lobes. CARDIOVASCULAR: Regular rate and rhythm. ABDOMEN: Soft, nontender and nondistended. EXTREMITIES: Nonpitting bilateral lower extremity edema. NEUROLOGIC: No focal neurological deficits. SKIN: Warm, dry. laboratory and microbiology Laboratory Tests 03/05/25 04:15 Test 03/05/25 04:15 Range/Units Serum Glucose 94 74-106 mg/dL Problem List De Jose decompensated HFrEF, NYHA class III. NSTEMI. Presence of permanent pacemaker ([employer]). Hypertension. Severe mitral valve regurgitation. Moderate degree tricuspid regurgitation. Severe pulmonary hypertension (RVSP 55mmHg). Acute kidney injury. Prediabetes. GERD. Morbid obesity. Assessment/Plan Continued all current supportive medical care. DVT and GI prophylactics. Morphine for pain. Additional plan as per the hospital course. Critical care time of 45 minutes provided to include time spent evaluation of patient at bedside, when appropriate patient/family education for diagnosis, treatment plan, review of pertinent medical information and discussion of care with specialty providers and PCP. Dietary Evaluation Review Comments: Goal: Optimize blood glucose control to prevent further renal decline. Emphasize and follow strict adherence to CCHO-45 cardiac diet Expected Outcomes/Goals: controlled DM, improved renal parameters and electrolyte balance. Plan discussed with: Patient NAT HAN MD Mar 05, 2025 17:11
[2025-03-06] MEDS ORDERED: acetaZOLAMIDE SODIUM 500 MG VL IV SCH (10:00)
--- NOTE | 2025-03-06 14:18 | ECG ---
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
== END 2025-03-05 16:46 | disposition left against medical advice (07) | DRG 194 ==
LOC: ER 10:54 → OVERFLOW 21:01 → TELE-WESTW 23:45 → ICU WEST 03-03 11:55
PROVIDERS: ADMIT Internal Medicine; ATTEND Internal Medicine
PROC: 05H933Z Insertion of Infusion Device into Right Brachial Vein, Percutaneous Approach (ICD-10-PCS; 2025-03-02)
PROC: B54MZZA Ultrasonography of Right Upper Extremity Veins, Guidance (ICD-10-PCS; 2025-03-02)
PROC: 5A09357 Assistance with Respiratory Ventilation, Less than 24 Consecutive Hours, Continuous Positive Airway Pressure (ICD-10-PCS; principal; 2025-03-03)
PROC: 5A09357 Assistance with Respiratory Ventilation, Less than 24 Consecutive Hours, Continuous Positive Airway Pressure (ICD-10-PCS; 2025-03-04)
DX: I13.0 Hypertensive heart and chronic kidney disease with heart failure and stage 1 through stage 4 chronic kidney disease, or unspecified chronic kidney disease (principal); N17.0 Acute kidney failure with tubular necrosis; J96.02 Acute respiratory failure with hypercapnia; G93.41 Metabolic encephalopathy; J96.01 Acute respiratory failure with hypoxia; N39.0 Urinary tract infection, site not specified; I50.23 Acute on chronic systolic (congestive) heart failure; E66.01 Morbid (severe) obesity due to excess calories; I34.0 Nonrheumatic mitral (valve) insufficiency; I27.20 Pulmonary hypertension, unspecified; E11.22 Type 2 diabetes mellitus with diabetic chronic kidney disease; N18.9 Chronic kidney disease, unspecified; I21.A1 Myocardial infarction type 2; Z53.29 Procedure and treatment not carried out because of patient's decision for other reasons; Z66 Do not resuscitate; K21.9 Gastro-esophageal reflux disease without esophagitis; I07.1 Rheumatic tricuspid insufficiency; E87.5 Hyperkalemia; E87.29 Other acidosis; Z95.0 Presence of cardiac pacemaker; Z79.899 Other long term (current) drug therapy; Z68.33 Body mass index [BMI] 33.0-33.9, adult
CPT/HCPCS: 36415; 36600; 70450; 71045; 80048; 80053; 80061; 81001; 82140; 82805; 82962; 83036; 83605; 83690; 83735; 83880; 84443; 84484; 85025; 87081; 87086; 93005; 93306; 94660; 96365; 96375; G0378; J2405; J2470